=== PATIENT | male | born 1940 | race Caucasian/White ===

== ENCOUNTER 2016-11-05 17:52 | Inpatient (IN) | payer MEDICARE, OTHER ==
[2016-11-05] MEDS ORDERED: OXYCODONE-ACETAMINOPHEN 5-325 MG TABLET PO ONE (19:32)
--- NOTE | 2016-11-05 19:34 | ER Document Report ---
ED Medical Screen (RME) - General Chief Complaint: Skin Problem Stated Complaint: ABDOMINAL PROBLEM Time Seen by Provider: 11/05/16 19:31 Mode of Arrival: Ambulatory Information source: Patient TRAVEL OUTSIDE OF THE [place] IN LAST 30 DAYS: No - HPI Patient complains to provider of: drainage from old surgical wound on the right upper quadrant Notes: 11/05/16 19:34 Patient is a 76-year-old male who presents to the emergency room complaining of drainage from a old surgical scar in the right upper quadrant that he first noticed yesterday, he reports increased pressure and pain, he has been attempting to press on the area to drain all the fluid but it continues to drain , he denies a fever, no nausea or vomiting - Related Data Allergies/Adverse Reactions: alpha lipoic acid [From [facility]] Allergy (Severe, Verified 10/26/15 16: 20) folic acid [From [facility]] Allergy (Severe, Verified 10/26/15 16:20) lutein [From [facility]] Allergy (Severe, Verified 10/26/15 16:20) multivitamin with minerals [From [facility]] Allergy (Severe, Verified 12/03 16:20) iron [Iron] Allergy (Intermediate, Verified 10/26/15 16:20) BLOOD THINNERS Allergy (Mild, Uncoded 10/26/15 16:20) blood thinners Allergy (Mild, Uncoded 10/26/15 16:20) DIABETIC MEDICATIONS Allergy (Mild, Uncoded 10/26/15 16:20) Past Medical History - Past Medical History Cardiac Medical History: Reports: Hx Atrial Fibrillation, Hx Congestive Heart Failure, Hx Coronary Artery Disease - CONTROLLED WITH MEDS , Hx Heart Attack - 1993/CATH Denies: Hx Hypertension Pulmonary Medical History: Reports: Hx Bronchitis Denies: Hx Asthma, Hx COPD, Hx Pneumonia Neurological Medical History: Denies: Hx Cerebrovascular Accident, Hx Seizures Endocrine Medical History: Reports: Hx Diabetes Mellitus Type 1, Hx Diabetes Mellitus Type 2 Renal/ Medical History: Denies: Hx Peritoneal Dialysis GI Medical History: Reports: Hx Gastroesophageal Reflux Disease Musculoskeltal Medical History: Reports Hx Arthritis Past Surgical History: Reports: Hx Appendectomy, Hx Cardiac Catheterization, Hx Cholecystectomy, Hx Herniorrhaphy. Denies: Hx Pacemaker - Immunizations Immunizations up to date: Yes Hx Diphtheria, Pertussis, Tetanus Vaccination: Yes Physical Exam - Vital signs Vitals: Temp Pulse Resp BP Pulse Ox 97.8 F 85 24 H 194/75 H 96 11/05/16 18:01 11/05/16 18:01 11/05/16 18:01 11/05/16 18:01 11/05/16 18:01 Course - Vital Signs Vital signs: Temp Pulse Resp BP Pulse Ox 97.8 F 85 24 H 194/75 H 96 11/05/16 18:01 11/05/16 18:01 11/05/16 18:01 11/05/16 18:01 11/05/16 18:01
[2016-11-05 20:01] LABS: ABSOLUTE BASOPHILS # (AUTO) 0.1 10^3/uL (0.0-0.2); ABSOLUTE EOSINOPHILS # (AUTO) 0.1 10^3/uL (0.0-0.6); ABSOLUTE LYMPHOCYTES (AUTO) 2.4 10^3/uL (0.5-4.7); ABSOLUTE MONOCYTES (AUTO) 1.1 10^3/uL (0.1-1.4); ABSOLUTE NEUT (AUTO) 6.7 10^3/uL (1.7-8.2); BASOPHILS % (AUTO) 0.7 % (0-2); EOSINOPHILS % (AUTO) 1.2 % (0-6); HEMATOCRIT 51.3 % (37.9-51.0); HEMOGLOBIN 16.5 g/dL (13.5-17.0); HGB HCT DIFFERENCE -1.8; LYMPHOCYTES % (AUTO) 23.4 % (13-45); MEAN CORPUSCULAR HEMOGLOBIN 29.2 pg (27.0-33.4); MEAN CORPUSCULAR HGB CONC 32.1 g/dL (32.0-36.0); MEAN CORPUSCULAR VOLUME 91 fl (80-97); MONOCYTES % (AUTO) 10.7 % (3-13); RED BLOOD COUNT 5.64 10^6/uL (4.35-5.55); RED CELL DISTRIBUTION WIDTH 14.1 % (11.5-14.0); WHITE BLOOD COUNT 10.4 10^3/uL (4.0-10.5)
[2016-11-05 20:14] LABS: ALANINE AMINOTRANSFERASE 26 U/L (21-72); ALBUMIN 4.2 g/dL (3.5-5.0); ALKALINE PHOSPHATASE 84 U/L (38-126); ANION GAP 11 (5-19); ASPARTATE AMINO TRANSFERASE 20 U/L (17-59); BILIRUBIN,DIRECT 0.4 mg/dL (0.0-0.4); BILIRUBIN,TOTAL 0.9 mg/dL (0.2-1.3); BLOOD UREA NITROGEN 16 mg/dL (7-20); CALCIUM 10.1 mg/dL (8.4-10.2); CARBON DIOXIDE 30 mmol/L (22-30); CHLORIDE 102 mmol/L (98-107); CREATININE RESULT 1.06 mg/dL (0.52-1.25); GLUCOSE 123 mg/dL (75-110); POTASSIUM 4.7 mmol/L (3.6-5.0); SODIUM 143.4 mmol/L (137-145); TOTAL PROTEIN 8.6 g/dL (6.3-8.2)
--- NOTE | 2016-11-05 20:40 | ER Document Report ---
ED Wound - General Chief Complaint: Skin Problem Stated Complaint: ABDOMINAL PROBLEM Time Seen by Provider: 11/05/16 19:31 Mode of Arrival: Ambulatory Notes: Patient is a 76-year-old male that comes emergency department for chief complaint of 2 days of an area and an old surgical scar near his right upper quadrant of the abdomen that has leakage, he states it became raised, red, and then burst open and drained. He states the area significantly better now that has drained and is actually very small now. He states he has dealt with this intermittently for a long time now. He is diabetic, he states his glucose has been controlled, he denies fever chills, nausea/vomiting, or any other concerns other than the tender draining area. He lives by himself. Daughter at bedside. TRAVEL OUTSIDE OF THE [place] IN LAST 30 DAYS: No - Related Data Allergies/Adverse Reactions: alpha lipoic acid [From [facility]] Allergy (Severe, Verified 10/26/15 16: 20) folic acid [From [facility]] Allergy (Severe, Verified 10/26/15 16:20) lutein [From [facility]] Allergy (Severe, Verified 10/26/15 16:20) multivitamin with minerals [From [facility]] Allergy (Severe, Verified 12/03 16:20) iron [Iron] Allergy (Intermediate, Verified 10/26/15 16:20) BLOOD THINNERS Allergy (Mild, Uncoded 10/26/15 16:20) blood thinners Allergy (Mild, Uncoded 10/26/15 16:20) DIABETIC MEDICATIONS Allergy (Mild, Uncoded 10/26/15 16:20) Past Medical History - General Information source: Patient - Social History Smoking Status: Never Smoker Frequency of alcohol use: None Drug Abuse: None Lives with: Family Family History: Reviewed & Not Pertinent - Past Medical History Cardiac Medical History: Reports: Hx Atrial Fibrillation, Hx Congestive Heart Failure, Hx Coronary Artery Disease - CONTROLLED WITH MEDS , Hx Heart Attack - 1993/CATH Denies: Hx Hypertension Pulmonary Medical History: Reports: Hx Bronchitis Denies: Hx Asthma, Hx COPD, Hx Pneumonia Neurological Medical History: Denies: Hx Cerebrovascular Accident, Hx Seizures Endocrine Medical History: Reports: Hx Diabetes Mellitus Type 2 Renal/ Medical History: Denies: Hx Peritoneal Dialysis GI Medical History: Reports: Hx Gastroesophageal Reflux Disease Musculoskeltal Medical History: Reports Hx Arthritis Past Surgical History: Reports: Hx Appendectomy, Hx Cardiac Catheterization, Hx Cholecystectomy, Hx Herniorrhaphy. Denies: Hx Pacemaker - Immunizations Immunizations up to date: Yes Hx Diphtheria, Pertussis, Tetanus Vaccination: Yes Review of Systems - Review of Systems Constitutional: No symptoms reported EENT: No symptoms reported Cardiovascular: No symptoms reported Respiratory: No symptoms reported Gastrointestinal: No symptoms reported Genitourinary: No symptoms reported Male Genitourinary: No symptoms reported Musculoskeletal: No symptoms reported Skin: See HPI Hematologic/Lymphatic: No symptoms reported Neurological/Psychological: No symptoms reported Physical Exam - Vital signs Vitals: Temp Pulse Resp BP Pulse Ox 97.8 F 85 24 H 194/75 H 96 11/05/16 18:01 11/05/16 18:01 11/05/16 18:01 11/05/16 18:01 11/05/16 18:01 Interpretation: Normal - General General appearance: Appears well, Alert In distress: None - patient obese but well appearing - HEENT Head: Normocephalic, Atraumatic Eyes: Normal Conjunctiva: Normal Extraocular movements intact: Yes Eyelashes: Normal Pupils: PERRL Nasal: Normal Mouth/Lips: Normal Mucous membranes: Normal Pharynx: Normal Neck: Normal - Respiratory Respiratory status: No respiratory distress Chest status: Nontender Breath sounds: Normal. No: Decreased air movement, Wheezing Chest palpation: Normal - Cardiovascular Rhythm: Regular. No: Tachycardia Heart sounds: Normal auscultation, S1 appreciated, S2 appreciated Murmur: No - Abdominal Inspection: Other - There is an open draining area with very minimal surrounding erythema with some induration over the right upper quadrant, the area is within a long old surgical cholecystectomy scar, there are multiple scars of the patient's abdomen including a long midline scar. No guarding, no rebound tenderness, unremarkable exam otherwise. - Back Back: Normal, Nontender. No: Tender - Extremities General upper extremity: Normal inspection, Nontender, Normal color, Normal ROM , Normal temperature General lower extremity: Normal inspection, Nontender, Normal color, Normal ROM , Normal temperature, Normal weight bearing. No: Skyler's sign - Neurological Neuro grossly intact: Yes Cognition: Normal Orientation: AAOx4 [place] Coma Scale Eye Opening: Spontaneous [place] Coma Scale Verbal: Oriented [place] Coma Scale Motor: Obeys Commands [place] Coma Scale Total: 15 Speech: Normal Motor strength normal: LUE, RUE, LLE, RLE Sensory: Normal - Psychological Associated symptoms: Normal affect, Normal mood - Skin Skin Temperature: Warm Skin Moisture: Dry Skin Color: Normal Skin irregularity: other - Erythematous and wet areas underneath patient's abdominal pannus Course - Re-evaluation Re-evalutation: Examination shows a draining area in the right upper quadrant surgical scar, no fever, CBC and chemistry are generally unremarkable. Concern because on ultrasound at bedside and on formal ultrasound abscess is noted to be very large, extending several centimeters down into the abdomen. Discussed with Dr. Loyola, recommends surgical consultation. Discussed with Dr. Logan, surgeon paper production engineer, he recommends that patient be admitted to the hospital for surgical treatment of the abdominal wall abscess. Patient was already given a dose of vancomycin and pain medication, discussed with family, patient, they state understanding and agreement. - Vital Signs Vital signs: Temp Pulse Resp BP Pulse Ox 97.8 F 81 18 157/97 H 100 11/06/16 01:09 11/06/16 01:09 11/06/16 01:09 11/06/16 01:09 11/06/16 01:09 - Laboratory Result Diagrams: 11/05/16 19:45 11/05/16 19:45 Laboratory results interpreted by me: 11/05/16 11/05/16 19:45 19:45 RBC 5.64 H Hct 51.3 H RDW 14.1 H Glucose 123 H Total Protein 8.6 H Discharge - Discharge Clinical Impression: Abdominal wall abscess Disposition: ADMITTED INPATIENT Admitting Provider: Surgicalist Unit Admitted: Surgical Floor
--- NOTE | 2016-11-05 21:52 | RADIOLOGY REPORT (SQ) ---
EXAM DESCRIPTION: U/S ABDOMEN LIMITED W/O DOP COMPLETED DATE/TIME: 11/05/2016 9:36 pm REASON FOR STUDY: pain, fluid leakage COMPARISON: CT abdomen and pelvis 03/28/2012 Bilateral renal ultrasound 01/17/2010 TECHNIQUE: Dynamic and static grayscale images acquired of the abdomen and recorded on PACS. Additio nal selected color Doppler and spectral images recorded. LIMITATIONS: Body habitus, upper abdominal bowel gas FINDINGS: In the right upper quadrant anterior abdominal wall along the incision, there is a fluid c ollection superficial to the abdominal wall musculature, measuring about 4 x 3 x 3 cm in size. There is a tract to the skin surface. Findings are worrisome for an incisional abscess. PANCREAS: Not visualized LIVER: Limited visualization. No gross hepatomegaly LIVER VASCULATURE: Normal directional flow of the main portal vein and hepatic veins. GALLBLADDER: Surgically absent ULTRASOUND-DETECTED MENDEZ'S SIGN: Not apple ago INTRAHEPATIC DUCTS AND COMMON DUCT: Not well seen INFERIOR VENA CAVA: Not well seen AORTA: Not were RIGHT KIDNEY: Normal size. Normal echogenicity. No solid or suspicious masses. No hydronephrosis. No calcifications. PERITONEAL AND RIGHT PLEURAL SPACE: No ascites or effusions. OTHER: No other significant findings. IMPRESSION: Probable incisional abscess along the right upper quadrant abdominal wall, 4 x 3 x 3 cm size Post cholecystectomy Limited study due to large body habitus TECHNICAL DOCUMENTATION: JOB ID: [id number] All Rights Reserved
[2016-11-05] MEDS ORDERED: LIDOCAINE 1%/EPINEPHRINE INJ 20 ML VIAL INJ ONE (22:15)
[2016-11-05] MEDS ORDERED: VANCOMYCIN HCL INJ 1000 MG VIAL IV ONE (22:19)
[2016-11-05] MEDS ORDERED: CLOTRIMAZOLE 1% TOPICAL SOLN 10 ML TP ONE (22:26)
[2016-11-06] MEDS ORDERED: GLUCAGON,HUMAN RECOMB 1 MG INJ SUBCUT PRN (01:23)
[2016-11-06] MEDS ORDERED: DEXTROSE 40% GEL 15 GM TUBE PO PRN ×2 (01:23)
[2016-11-06] MEDS ORDERED: DEXTROSE 50%-WATER 25 GM/50 ML DISP.SYRIN IV PRN ×2 (01:23)
[2016-11-06] MEDS ORDERED: MORPHINE SULFATE 10 MG/ML INJ IV PRN (02:01)
[2016-11-06] MEDS ORDERED: OXYCODONE-ACETAMINOPHEN 5-325 MG TABLET PO PRN (02:01)
[2016-11-06] MEDS: NORMAL SALINE 1000 ML 1,000 ML IV PRN ×2 (02:45→20:21)
--- NOTE | 2016-11-06 09:09 | HISTORY AND PHYSICAL E ---
History and Physical NAME: KSENIA OSHEA : 1940 AGE: 76Y ADMITTED: 11/05/2016 ROOM: 419 CHIEF COMPLAINT: Pains in the right upper quadrant and drainage. HISTORY OF PRESENT ILLNESS: This is a 76-year-old male who underwent open cholecystectomy with incidental appendectomy about 20 years ago. Since then he would have collection in the right upper quadrant right at the incision and would drain brownish material. He had this at least twice in past. At this time, he noted pain and drainage along the right upper quadrant for the past 2 days. He claims the drainage is brownish in color. He had an ultrasound of this area which showed at least a 4 cm collection. PAST MEDICAL HISTORY: 1. History of open cholecystectomy and incidental appendectomy. 2. Left inguinal hernia repair in 1948. 3. He had a [place] in 1993. 4. Colon resection with end sigmoid colostomy for ruptured diverticulitis in 2011. He did have a trach during that time and the trach was closed after 6 months. SOCIAL HISTORY: He used to smoke until 1989. Denies drug use. Drinks beer occasionally. ALLERGIES: BLOOD THINNERS AND DIABETIC MEDICATIONS. He is a diabetic but not taking any medications at this time. MEDICATIONS: 1. Metoprolol for hypertension and history of [place]. 2. Aspirin. REVIEW OF SYSTEMS: Denies any shortness of breath, chest pain, or cough. No difficulty swallowing. GI: Right upper quadrant pain. Colostomy is functioning well. No dysuria. The rest of the systems unremarkable. PHYSICAL EXAMINATION: GENERAL: Well developed, well nourished, 76-year-old male alert and oriented. Complaining of mild pains in the right upper quadrant. HEENT: Neck is supple. No thyromegaly. LUNGS: Clear. HEART: Regular sinus rhythm. ABDOMEN: Soft with palpable lump along the right subcostal cholecystectomy incision site. There is a hole that is relatively dry at this time. Colostomy is functioning well. EXTREMITIES: No edema. IMPRESSION: Collection of the right upper quadrant at the cholecystectomy incision site that is recurrent. Rule out abscess. Rule out fistula. PLAN: 1. Keep n.p.o. and on IV antibiotics. 2. Possible drainage of the collection today by Dr. Gallo. DICTATING PHYSICIAN: MARJAN ONEILL M.D. [id number] PHY#: [id number] ID: [id number] JOB#: [id number] ACCT: [id number] cc:MARJAN ONEILL M.D. >
--- NOTE | 2016-11-06 10:21 | EKG REPORT ---
SEVERITY:- ABNORMAL ECG - ATRIAL FIBRILLATION, V-RATE 44-74 BORDERLINE INFERIOR Q WAVES BORDERLINE T ABNORMALITIES, DIFFUSE LEADS : Confirmed by: Yanira Matthew MD 06-Nov-2016 10:20:59
[2016-11-06] MEDS: VANCOMYCIN HCL 1,500 MG in DEXTROSE 5%-WATER 250 ML IV SCH ×2 (10:45→22:54)
--- NOTE | 2016-11-06 13:54 | RADIOLOGY REPORT (SQ) ---
EXAM DESCRIPTION: CT ABD/PELVIS WITH IV ORAL COMPLETED DATE/TIME: 11/06/2016 1:29 pm REASON FOR STUDY: r/o biliary cutaneous fistula COMPARISON: Ultrasound dated 11/05/2016, CT abdomen and pelvis dated 03/28/2012 TECHNIQUE: CT scan of the abdomen and pelvis performed using helical scanning technique with dynamic intravenous contrast injection. No oral contrast. Images reviewed with lung, soft tissue, and bone windows. Reconstructed coronal and sagittal MPR images reviewed. Delayed images for evaluation of the urinary system also acquired. All images stored on PACS. All CT scanners at this facility use dose modulation, iterative reconstruction, and/or weight based d osing when appropriate to reduce radiation dose to as low as reasonably achievable (ALARA). [facility]: Dose Right [facility]: CareDose [facility]: Dose Right [facility]: Teradose 4D [facility]: TRUSTe CONTRAST TYPE AND DOSE: contrast/concentration: Isovue 370.00 mg/ml; Total Contrast Delivered: 100.0 ml; Total Saline Delivered: 28.1 ml RENAL FUNCTION: BUN 16, creatinine 1.06 RADIATION DOSE: Up-to-date CT equipment and radiation dose reduction techniques were employed. CTDIv ol: 25.5 - 30.3 mGy. DLP: 3052 mGy-cm.. LIMITATIONS: None. FINDINGS: LOWER CHEST: There is bilateral basilar pleural thickening. There is a small left effusio n and bibasilar atelectasis. LIVER: Normal size. No masses or dilated ducts. SPLEEN: Normal size. No focal lesions. PANCREAS: No masses. No significant calcifications. No adjacent inflammation or peripancreatic fluid collections. Pancreatic duct not dilated. GALLBLADDER: Surgically absent. ADRENAL GLANDS: No significant masses or asymmetry. RIGHT KIDNEY AND URETER: No solid masses. No significant calcifications. No hydronephrosis or hyd roureter. LEFT KIDNEY AND URETER: No solid masses. There are stable stones in the left renal pelvis. Largest measures 1.3 cm in diameter. No hydronephrosis or hydroureter. AORTA AND VESSELS: The aorta demonstrates calcified plaque. No aneurysmal dilatation. RETROPERITONEUM: No retroperitoneal adenopathy, hemorrhage or masses. BOWEL AND PERITONEAL CAVITY: There are postsurgical changes with an ostomy site in the left lower nguyen drant. APPENDIX: Not visualized. PELVIS: No mass or free fluid. Normal bladder. ABDOMINAL WALL: There is focal soft tissue attenuation in the right lateral abdominal wall this measu res 4.5 cm in greatest diameter. There is a fistulous track with the skin. Hounsfield units are hig h most likely due to artifact. BONES: No significant or acute findings. OTHER: No other significant finding. IMPRESSION: Small subcutaneous collection is identified. 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 La rgest diameter is 4.5 cm. This may represent postoperative seroma or hematoma. There is no subcutan eous gas. There are no acute intraabdominal findings. There are stable nonobstructing left renal ca lculi. TECHNICAL DOCUMENTATION: JOB ID: [id number] Quality ID # [id number]: Final reports with documentation of one or more dose reduction techniques (e.g., Au tomated exposure control, adjustment of the mA and/or kV according to patient size, use of iterative reconstruction technique) 2010 [employer]- All Rights Reserved
[2016-11-06] MEDS: MORPHINE SULFATE 10 MG/ML INJ IV PRN (14:23)
[2016-11-06] MEDS ORDERED: LIDOCAINE 1% INJ-PF (10 MG/ML) 30 ML SDV ONE (16:12)
--- NOTE | 2016-11-06 16:13 | PROGRESS NOTE E ---
Progress Note NAME: KSENIA OSHEA : 1940 AGE: 76Y DATE: 11/06/2016 ROOM: 419 SUBSEQUENT HOSPITAL NOTE BY GENERAL SURGERY SUBJECTIVE: The patient is still having drainage from his right subcostal incision. This incision according to patient's verbal history but not confirmed through any medical record review, has been intermittent following an open cholecystectomy 20 years ago. Occasionally the drainage is bilious. The patient denies history of trauma or any surgery for the infectious site. OBJECTIVE: GENERAL: The patient is examined twice today--once at 8 o'clock in the morning and once at 3:40 in the afternoon. He is in no acute distress. ABDOMEN: Soft with midline operative scar, left lower quadrant colostomy. The right subcostal scar is well healed but in the center is an actively draining purulent and bile-stained area. The remainder of the examination is nonfocal. LABORATORY PROFILE: From yesterday was unremarkable. There is no white count. We did obtain a CT scan of the abdomen and pelvis today which was a well performed study. There is an inflammatory subcutaneous and deep tract going towards the tip of the right inferior pole of the liver without any intraabdominal fluid collection. This does not communicate with the issac hepatis. There is no other fluid in the abdominal compartment. The interpretation was of a fistulous tract. There is no subcutaneous gas. IMPRESSION: CHRONIC RECURRENT DRAINING SUBCUTANEOUS INFLAMMATORY MASS THAT APPEARS TO BE COMMUNICATING WITH THE INFEROLATERAL ASPECT OF THE RIGHT LOBE OF THE LIVER WITHOUT ANY EVIDENCE OF INTRAABDOMINAL SEPSIS. DISCUSSION: I shared the findings with the patient and the patient's daughters at bedside today. I gave him several options which included nonoperative management, possible percutaneous drain, possible bedside debridement and operating room debridement under LMAC to clean this tract down and possibly leave a drain in. He would like to have the tract cleaned out and I think this is a reasonable option. I told him we would stick to a local regional debridement and not perform exploratory surgery, and he is in agreement to proceed. DICTATING PHYSICIAN: EUN CARCAMO M.D. [id number] PHY#: [id number] ID: [id number] JOB#: [id number] ACCT: [id number] cc: >
[2016-11-06] MEDS ORDERED: KETAMINE HCL INJ 500 MG/10 ML VIAL ONE (16:34)
[2016-11-06] MEDS ORDERED: DEXMEDETOMIDINE INJ 80 MCG/20 ML VIAL IV ONE (16:34)
[2016-11-06] MEDS ORDERED: MIDAZOLAM 2 MG/2 ML INJ ONE (16:34)
[2016-11-06] MEDS ORDERED: FENTANYL CITRATE INJ/PF 100 MCG/2 ML AMPUL ONE (16:34)
[2016-11-06] MEDS ORDERED: PROPOFOL INJ 200 MG/20 ML VIAL IV ONE (16:34)
[2016-11-06] MEDS ORDERED: DIPHENHYDRAMINE HCL 50 MG/ML VIAL IV PRN (17:36)
[2016-11-06] MEDS ORDERED: FENTANYL CITRATE INJ/PF 100 MCG/2 ML AMPUL IV PRN ×2 (17:36)
--- NOTE | 2016-11-06 17:41 | Operative Report ---
Operative Report PREOPERATIVE DIAGNOSIS: Abdominal wall abscess POSTOPERATIVE DIAGNOSIS: Abdominal wall abscess; no evidence of intraperitoneal communication OPERATION: Abdominal wall abscess debridement excisional, with night, #10, and vigorous manual debridement and intraoperative ultrasonography SURGEON: EUN CARCAMO ANESTHESIA: LMAC TISSUE REMOVED OR ALTERED: Nonviable skin and subcutaneous tissue, abscess COMPLICATIONS: None ESTIMATED BLOOD LOSS: 10 cc INTRAOPERATIVE FINDINGS: See below PROCEDURE: The patient was taken to the operating room also [facility] where LMAC anesthesia was induced. Right upper quadrant abdominal wall was exposed, prepped draped sterile fashion. Surgical plan and surgical timeout were conducted. Skin was anesthetized with 1% lidocaine at the site of the abscess drainage approximately mid to two thirds lateral to the starting point of the chronic subcostal operative scar. I ellipsed a portion of skin subcu and subcutaneous tissue with a #10 blade. We then got into the necrotic fat pocket was extended inferiorly laterally and somewhat superiorly. All loculations were broken up vigorously with finger dissection and suction. Of note several strands of black suture were removed floating in the debris. There was one single edged retained portion of suture coming out of the fascia and this was pulled on but did not relieve so was trimmed at the fascial level. Of note there was no succus, bile, or penetration through the fascia into the peritoneal cavity. The infection appeared to be contained predominantly to the subcutaneous space. This was somewhat of a departure from what was visualized on the CT scan earlier today however I felt like the appropriate level of damage control for the localized infection have been performed. The wound was irrigated out again. Wound packed with gauze packing. Postop procedure well.
--- NOTE | 2016-11-06 17:55 | EKG REPORT ---
SEVERITY:- ABNORMAL ECG - ATRIAL FIBRILLATION, V-RATE 63-77 BORDERLINE INFERIOR Q WAVES CONSIDER ANTEROSEPTAL INFARCT BORDERLINE T ABNORMALITIES, DIFFUSE LEADS : Confirmed by: Yanira Matthew MD 06-Nov-2016 17:55:23
[2016-11-06] MEDS ORDERED: NITROGLYCERIN 0.4 MG/TAB 25 TAB/BOTTLE SL PRN (20:09)
[2016-11-06] MEDS ORDERED: VANCOMYCIN HCL 1,000 MG in DEXTROSE 5%-WATER 250 ML IV SCH (22:00)
[2016-11-06] MEDS: METOPROLOL TARTRATE 25 MG TABLET PO SCH (22:54)
[2016-11-07] MEDS ORDERED: IRON PO SCH (10:00)
[2016-11-07] MEDS ORDERED: MULTIVITS CA MIN PO SCH (10:00)
[2016-11-07] MEDS ORDERED: LYCOP PO SCH (10:00)
[2016-11-07] MEDS ORDERED: [UNRECOGNIZED DRUG - OTHER] PO SCH (10:00)
[2016-11-07] MEDS: MULTIVITAMIN TABLET PO SCH (10:16)
[2016-11-07] MEDS: METOPROLOL TARTRATE 25 MG TABLET PO SCH ×2 (10:16→21:52)
[2016-11-07] MEDS: ASPIRIN 81 MG TABLET, ENT COATED PO SCH (10:17)
[2016-11-07] MEDS: LORATADINE 10 MG TABLET PO SCH (10:17)
[2016-11-07] MEDS: FUROSEMIDE 20 MG TABLET PO SCH (10:17)
[2016-11-07] MEDS: ASCORBIC ACID 500 MG TABLET PO SCH (10:17)
[2016-11-07] MEDS: LATANOPROST 0.005% OPH SOLN 2.5 ML OU SCH (10:18)
[2016-11-07] MEDS: IPRATROPIUM/ALBUTEROL 120 PUFF/4 GM MDI IH SCH (10:20)
[2016-11-07] MEDS: VANCOMYCIN HCL 1,500 MG in DEXTROSE 5%-WATER 250 ML IV SCH ×2 (10:26→22:55)
--- NOTE | 2016-11-07 11:08 | PROGRESS NOTE E ---
Progress Note NAME: KSENIA OSHEA : 1940 AGE: 76Y DATE: 11/07/2016 ROOM: 436 SUBJECTIVE: This is the first postop day for evacuation and debridement of the right upper quadrant for this patient. He had the surgery done yesterday by Dr. Gallo. This morning there is no fever. Temperature 97.7. Patient denies any significant pain in the right upper quadrant. PLAN: Continued IV antibiotics. I will remove the packing in a.m. and possibly repack it gently. DICTATING PHYSICIAN: MARJAN ONEILL M.D. [id number] PHY#: [id number] ID: [id number] JOB#: [id number] ACCT: [id number] cc: >
[2016-11-07] MEDS: NORMAL SALINE 1000 ML 1,000 ML IV PRN (21:50)
[2016-11-07] MEDS ORDERED: SIMVASTATIN 10 MG TABLET PO SCH (22:00)
[2016-11-08] MEDS: MORPHINE SULFATE 10 MG/ML INJ IV PRN (09:31)
[2016-11-08] MEDS: FUROSEMIDE 20 MG TABLET PO SCH (09:49)
[2016-11-08] MEDS: ASPIRIN 81 MG TABLET, ENT COATED PO SCH (09:51)
[2016-11-08] MEDS: METOPROLOL TARTRATE 25 MG TABLET PO SCH (09:51)
[2016-11-08] MEDS: MULTIVITAMIN TABLET PO SCH (09:51)
[2016-11-08] MEDS: LATANOPROST 0.005% OPH SOLN 2.5 ML OU SCH (09:52)
[2016-11-08] MEDS: ASCORBIC ACID 500 MG TABLET PO SCH (09:52)
[2016-11-08] MEDS: IPRATROPIUM/ALBUTEROL 120 PUFF/4 GM MDI IH SCH (09:52)
[2016-11-08] MEDS: LORATADINE 10 MG TABLET PO SCH (09:52)
[2016-11-08] MEDS: VANCOMYCIN HCL 1,500 MG in DEXTROSE 5%-WATER 250 ML IV SCH (09:55)
--- NOTE | 2016-11-08 09:59 | DISCHARGE SUMMARY E ---
Discharge Summary NAME: KSENIA OSHEA : 1940 AGE: 76Y ADMITTED: 11/06/2016 DISCHARGED: PROCEDURE DONE: Incision and drainage and debridement of right upper abdominal cholecystectomy incision site by Dr. Gallo. SUMMARY: This is a 76-year-old male who had an open cholecystectomy done about 20 years ago. Since then he has had multiple abscesses on the right side of the abdomen at the incision site. Third episodes was this time when he complained of pain along the right upper quadrant and an ultrasound showed a mass or collection at the right upper quadrant, appears to be the area of the cholecystectomy site roughly about 4 cm in diameter. An incision and drainage was then performed by Dr. Gallo on 11/06/2016 with removal of sutures which may be the reason why he is getting recurrences. The area was also debrided and packed. Today the packing was removed and the wound looks good with no drainage. It was gently repacked with 1/4 inch Iodoform gauze. He will be discharged on p.o. Augmentin. Culture from the wound did not grow anything so far. He will just need p.o. antibiotics for another 5 to 7 days. Arrangements will be made for him to come to [facility] for followup in the next two days. DICTATING PHYSICIAN: MARJAN ONEILL M.D. [id number] PHY#: [id number] ID: [id number] JOB#: [id number] ACCT: [id number] cc:Vicky LARA PA >
[2016-11-08 11:38] VITALS: BP 159/84
[2016-11-08 11:43] LABS: CREATININE RESULT 0.99 mg/dL (0.52-1.25)
--- NOTE | 2016-11-09 10:01 | OPERATIVE REPORT E ---
Operative Report NAME: KSENIA OSHEA : 1940 AGE: 76Y DATE OF SURGERY: 11/06/2016 ROOM: 436 ADDENDUM: The wound size of the cavity was approximately 4 x 4 x 12 cm. DICTATING PHYSICIAN: EUN CARCAMO M.D. [id number] PHY#: [id number] ID: [id number] JOB#: [id number] ACCT: [id number] cc:EUN CARCAMO M.D. >
== END 2016-11-08 14:15 | disposition home or self-care (01) | DRG 572 ==
LOC: ER 17:52 → EH 22:45 → UNDOADMIN 22:45 → EH 11-06 01:08 → 4W 11-06 01:08 → UNDOADMIN 11-06 01:22 → 4W 11-06 06:58 → 4S 11-07 06:33
PROVIDERS: ADMIT Surgery; ATTEND Surgery
PROC: 0JB80ZZ Excision of Abdomen Subcutaneous Tissue and Fascia, Open Approach (ICD-10-PCS; principal; 2016-11-06 16:00)
DX: L02.211 Cutaneous abscess of abdominal wall (principal); I25.10 Atherosclerotic heart disease of native coronary artery without angina pectoris; I48.91 Unspecified atrial fibrillation; E11.9 Type 2 diabetes mellitus without complications; K21.9 Gastro-esophageal reflux disease without esophagitis; M19.90 Unspecified osteoarthritis, unspecified site; I25.2 Old myocardial infarction; Z90.49 Acquired absence of other specified parts of digestive tract; Z79.82 Long term (current) use of aspirin; Z79.899 Other long term (current) drug therapy; Z93.3 Colostomy status; Z87.891 Personal history of nicotine dependence; Z88.8 Allergy status to other drugs, medicaments and biological substances
CPT/HCPCS: 36415; 700; 74177; 76705; 80053; 80202; 82565; 82962; 85025; 87040; 87070; 87075; 87077; 87186; 87205; 93005; 93010; 99285; A6266; J2250; J2270; J2704; J3010; J3370; J3490; J7030; J7060

== ENCOUNTER → 2016-12-15 | Outpatient (CLI) | payer MEDICARE, OTHER ==
--- NOTE | 2016-12-15 15:51 | RADIOLOGY REPORT (SQ) ---
EXAM DESCRIPTION: CT ABDOMEN WITH IV ORAL CONT COMPLETED DATE/TIME: 12/15/2016 2:27 pm REASON FOR STUDY: ABSCESS OF ABDOMINAL WALL L02.211 CUTANEOUS ABSCESS OF ABDOMINAL WALL COMPARISON: 11/06/2016 TECHNIQUE: CT scan of the abdomen performed with intravenous and with oral contrast using helical sc anning technique with dynamic intravenous contrast injection. Images reviewed with lung, soft tissue, and bone windows. Reconstructed coronal and sagittal MPR images reviewed. Delayed images for evaluat ion of the urinary system also acquired and evaluated. All images stored on PACS. All CT scanners at this facility use dose modulation, iterative reconstruc tion, and/or weight based dosing when appropriate to reduce radiation dose to as low as reasonably ac hievable (ALARA). [facility]: Dose Right [facility]: CareDose [facility]: Dose Right [facility]: Teradose 4D [facility]: Buzz360 CONTRAST TYPE AND DOSE: contrast/concentration: Isovue 370.00 mg/ml; Total Contrast Delivered: 100.0 ml; Total Saline Delivered: 40.5 ml RENAL FUNCTION: Creatinine 1.2 RADIATION DOSE: Up-to-date CT equipment and radiation dose reduction techniques were employed. CTDIv ol: 25.7 - 29.7 mGy. DLP: 2189 mGy-cm. . LIMITATIONS: None. FINDINGS: LOWER CHEST: Chronic interstitial changes are present in both lower lobes. LIVER: Normal size. No masses. No dilated ducts. SPLEEN: Normal size. No focal lesions. PANCREAS: No masses. No significant calcifications. No adjacent inflammation or peripancreatic fluid collections. Pancreatic duct not dilated. GALLBLADDER: Surgically absent. ADRENAL GLANDS: No significant masses or asymmetry. RIGHT KIDNEY AND URETER: No solid masses. No significant calcifications. No hydronephrosis or hyd roureter. LEFT KIDNEY AND URETER: No solid masses. Prominent calcifications are present in the collecting sys tem. No hydronephrosis or hydroureter. AORTA AND VESSELS: No aneurysm. Extensive atherosclerosis including atherosclerotic plaques at the o rigin of the celiac, SMA, and renal arteries. RETROPERITONEUM: No retroperitoneal adenopathy, hemorrhage or masses. BOWEL AND PERITONEAL CAVITY: No masses or inflammatory changes. No peritoneal masses. There is stran ding in the fat adjacent to the anterior aspect of the right lobe of the liver on images 36 through 5 3 series 2. APPENDIX: Surgically absent. ABDOMINAL WALL: The dense subcutaneous collection seen on the prior study laterally on the right this not included [id number] on this study. BONES: No significant or acute findings. OTHER: No other significant finding. IMPRESSION: 1. Chronic interstitial changes the lower lobes. 2. Extensive atherosclerosis. 3. There is stranding in the fat anterior to the right lobe of the liver. Unfortunately, the subcut aneous area of increased attenuation discussed in the report from the study from November 06 is not inc luded in examination field of the current study. TECHNICAL DOCUMENTATION: JOB ID: [id number] Quality ID # [id number]: Final reports with documentation of one or more dose reduction techniques (e.g., Au tomated exposure control, adjustment of the mA and/or kV according to patient size, use of iterative reconstruction technique) 2010 [employer]- All Rights Reserved
== END ==
LOC: RAD 12:52
PROVIDERS: ATTEND Nurse Practitioner Family
DX: L02.211 Cutaneous abscess of abdominal wall (principal)
CPT/HCPCS: 74160; 82565

== ENCOUNTER 2019-03-29 04:03 | Emergency (ER) | payer MEDICARE, OTHER ==
[2019-03-29] MEDS ORDERED: CEFAZOLIN 1 GM/D5W RTU 1 GM/50 ML RTUPB IV ONE (04:46)
--- NOTE | 2019-03-29 04:57 | ER Document Report ---
ED Wound - General Chief Complaint: Puncture Wound to Foot Stated Complaint: LEFT FOOT PAIN Time Seen by Provider: 03/29/19 04:21 Primary Care Provider: RINA WILL NP, DIRECTOR CHEMISTRY [Primary Care Provider] - Follow up as needed Notes: Patient is a 78-year-old male with a history of type 2 diabetes that comes to the emergency department for chief complaint of stepping on a sharp piece of plastic on the floor of his house with his bare feet just prior to arrival. He states that the piece of plastic was lodged in his foot for almost an hour because he thought that he was just feeling pain from stepping on it, he realized after a while and pulled out the piece, it was a couple of inches long and hard plastic reportedly. He states his tetanus is up-to-date within 5 years. He denies any other complaints. He drove himself here from home. He is not on a blood thinner other than baby aspirin. TRAVEL OUTSIDE OF THE [place] IN LAST 30 DAYS: No - Related Data Allergies/Adverse Reactions: alpha lipoic acid [From [facility]] Allergy (Severe, Verified 10/26/15 16:20) folic acid [From [facility]] Allergy (Severe, Verified 10/26/15 16:20) lutein [From [facility]] Allergy (Severe, Verified 10/26/15 16:20) multivitamin with minerals [From [facility]] Allergy (Severe, Verified 10/26/15 16:20) iron [Iron] Allergy (Intermediate, Verified 10/26/15 16:20) BLOOD THINNERS Allergy (Mild, Uncoded 10/26/15 16:20) blood thinners Allergy (Mild, Uncoded 10/26/15 16:20) DIABETIC MEDICATIONS Allergy (Mild, Uncoded 10/26/15 16:20) Home Medications: Patient states he cannot take medications for his diabetes because he is allergic Past Medical History - General Information source: Patient - Social History Smoking Status: Never Smoker Drug Abuse: None Lives with: Alone Family History: Reviewed & Not Pertinent Patient has suicidal ideation: No Patient has homicidal ideation: No - Past Medical History Cardiac Medical History: Reports: Hx Atrial Fibrillation, Hx Congestive Heart Failure, Hx Coronary Artery Disease - CONTROLLED WITH MEDS , Hx Heart Attack - 1994/CATH Denies: Hx Hypertension Pulmonary Medical History: Reports: Hx Bronchitis Denies: Hx Asthma, Hx COPD, Hx Pneumonia Neurological Medical History: Denies: Hx Cerebrovascular Accident, Hx Seizures Endocrine Medical History: Reports: Hx Diabetes Mellitus Type 2 Renal/ Medical History: Denies: Hx Peritoneal Dialysis GI Medical History: Reports: Hx Gastroesophageal Reflux Disease Musculoskeletal Medical History: Reports Hx Arthritis Past Surgical History: Reports: Hx Appendectomy, Hx Cardiac Catheterization, Hx Cholecystectomy, Hx Herniorrhaphy. Denies: Hx Pacemaker - Immunizations Immunizations up to date: Yes Hx Diphtheria, Pertussis, Tetanus Vaccination: Yes Review of Systems - Review of Systems Constitutional: No symptoms reported EENT: No symptoms reported Cardiovascular: No symptoms reported Respiratory: No symptoms reported Gastrointestinal: No symptoms reported Genitourinary: No symptoms reported Male Genitourinary: No symptoms reported Musculoskeletal: See HPI Skin: See HPI Hematologic/Lymphatic: No symptoms reported Neurological/Psychological: No symptoms reported Physical Exam - Vital signs Vitals: Temp Pulse Resp BP Pulse Ox 98.0 F 68 26 H 156/85 H 100 03/29/19 04:10 03/29/19 04:10 03/29/19 04:10 03/29/19 04:10 03/29/19 04:10 - Notes Notes: GENERAL: Alert, interacts well. No acute distress. HEAD: Normocephalic, atraumatic. EYES: Pupils equal, round, and reactive to light. Extraocular movements intact. ENT: Oral mucosa moist, tongue midline. Oropharynx unremarkable. Airway patent. LUNGS: Clear to auscultation bilaterally, no wheezes, rales, or rhonchi. No respiratory distress. HEART: Regular rate and rhythm. No murmur ABDOMEN: Soft, non-tender. Non-distended. Colostomy bag in place. EXTREMITIES: There is a puncture wound in the mid plantar aspect of the left foot with a tiny bit of bleeding when the current dressing is removed. No heavy bleeding, no noted tenderness or swelling, unremarkable foot exam otherwise with normal capillary refill and sensation, normal range of motion of the toes and ankle. Extremities otherwise unremarkable. BACK: no cervical, thoracic, lumbar midline tenderness. No saddle anesthesia, normal distal neurovascular exam. NEUROLOGICAL: Alert and oriented x3. Normal speech. Cranial nerves II through XII grossly intact. PSYCH: Normal affect, normal mood. SKIN: Warm, dry, normal turgor. No rashes or lesions noted. Course - Re-evaluation Re-evalutation: Patient with a puncture wound to the bottom of the foot, there was a small amount of bleeding noted but no significant swelling, the area is mildly tender, the foot exam is otherwise unremarkable except for some bilateral lower extremity edema which is mild. Patient states she has been sleeping with in a chair with his feet down when he normally elevates them at night. He states she will start elevating them again. Patient given Ancef, tetanus is up-to-date, x-ray without concerning findings. Because he is a diabetic we will add Pseudomonas coverage with Cipro in addition to coverage with Keflex for staph and strep. Area was cleaned and dressed. Fortunately patient also has a fly rail operator appointment on Sunday which is only in several days. Strongly urged him to follow-up with this for recheck, discussed care, discussed return precautions at length. Patient states appreciation and agreement. - Vital Signs Vital signs: Temp Pulse Resp BP Pulse Ox 97.8 F 66 19 155/74 H 97 03/29/19 07:00 03/29/19 07:00 03/29/19 07:00 03/29/19 07:00 03/29/19 07:00 Discharge - Discharge Clinical Impression: Puncture wound of left foot Qualifiers: Encounter type: initial encounter Qualified Code(s): S91.332A - Puncture wound without foreign body, left foot, initial encounter Condition: Stable Disposition: HOME, SELF-CARE Additional Instructions: The x-ray does not show any concerning findings. The wound is concerning for developing infection, elevate your foot whenever possible, take the antibiotics as prescribed. Clean the area thoroughly with soap and water, apply clean dressing. Xeroform (yellow part) can be used for the next 2 days, afterwards use the topical antibiotic. Please follow-up closely with your fly rail operator for recheck. Return if you worsen in any way including developing pain, discolored discharge, developing or spreading redness, fever/chills, or any other concerning symptoms Prescriptions: Ciprofloxacin HCl [Cipro 500 mg Tablet] 500 mg PO BID 7 Days #14 tablet Cephalexin Monohydrate [Keflex 500 mg Capsule] 500 mg PO QID #28 capsule Referrals: RINA WILL DIRECTOR CHEMISTRY, DIRECTOR CHEMISTRY [Primary Care Provider] - Follow up as needed
--- NOTE | 2019-03-29 05:43 | RADIOLOGY REPORT (SQ) ---
EXAM DESCRIPTION: XR FOOT 3 OR MORE VIEWS COMPLETED DATE/TME: 03/29/2019 04:46 CLINICAL HISTORY: 78 years, Male, stepped on large sharp foreign body COMPARISON: None. FINDINGS: 3 views of the left foot. Osteopenia. Plantar calcaneal spur. Plantar soft tissue edema. No radiopaque foreign body. IMPRESSION: 1. No radiopaque foreign body. copyright 2010 [employer]- All Rights Reserved
[2019-03-29 07:02] VITALS: BP 155/74
== END 2019-03-29 07:00 | disposition home or self-care (01) ==
LOC: ER 04:03
DX: S91.332A Puncture wound without foreign body, left foot, initial encounter (principal); W22.09XA Striking against other stationary object, initial encounter; I48.91 Unspecified atrial fibrillation; I50.9 Heart failure, unspecified; I25.2 Old myocardial infarction
CPT/HCPCS: 73630; J0690; 96365; 99283

== ENCOUNTER 2020-02-14 17:00 | Emergency (ER) | payer MEDICARE, OTHER ==
--- NOTE | 2020-02-14 17:54 | ER Document Report ---
ED GI/ - General TRAVEL OUTSIDE OF THE [place] IN LAST 30 DAYS: No - General Chief Complaint: Constipation Stated Complaint: CONSTIPATION Time Seen by Provider: 02/14/20 17:42 Primary Care Provider: KSENIA UMAÑA PA-C [Primary Care Provider] - Follow up as needed Notes: This 79-year-old man presents to the emergency department with a complaint of no thinning out of his colostomy for the past 10 days. He states that he is constipated and is having some abdominal discomfort. States that he has had the colostomy since 2009. He states he had a perforated colon and surgery was performed at [facility] in [facility]. Denies cough, fever, shortness of breath. He states that he has not been able to sleep the past few nights because of discomfort. (JANICE SOMMERS) - Related Data Allergies/Adverse Reactions: alpha lipoic acid [From [facility]] Allergy (Severe, Verified 10/26/15 16:20) folic acid [From [facility]] Allergy (Severe, Verified 10/26/15 16:20) lutein [From [facility]] Allergy (Severe, Verified 10/26/15 16:20) multivitamin with minerals [From [facility]] Allergy (Severe, Verified 10/26/15 16:20) iron [Iron] Allergy (Intermediate, Verified 10/26/15 16:20) BLOOD THINNERS Allergy (Mild, Uncoded 10/26/15 16:20) blood thinners Allergy (Mild, Uncoded 10/26/15 16:20) DIABETIC MEDICATIONS Allergy (Mild, Uncoded 10/26/15 16:20) Past Medical History - Social History Smoking Status: Unknown if Ever Smoked Family History: Reviewed & Not Pertinent - Past Medical History Cardiac Medical History: Reports: Hx Atrial Fibrillation, Hx Congestive Heart Failure, Hx Coronary Artery Disease - CONTROLLED WITH MEDS , Hx Heart Attack - 1993/ Denies: Hx Hypertension Pulmonary Medical History: Reports: Hx Bronchitis Denies: Hx Asthma, Hx COPD, Hx Pneumonia Neurological Medical History: Denies: Hx Cerebrovascular Accident, Hx Seizures Endocrine Medical History: Reports: Hx Diabetes Mellitus Type 1, Hx Diabetes Mellitus Type 2 Renal/ Medical History: Denies: Hx Peritoneal Dialysis GI Medical History: Reports: Hx Gastroesophageal Reflux Disease Musculoskeletal Medical History: Reports Hx Arthritis Past Surgical History: Reports: Hx Appendectomy, Hx Cardiac Catheterization, Hx Cholecystectomy, Hx Herniorrhaphy. Denies: Hx Pacemaker - Immunizations Immunizations up to date: Yes Hx Diphtheria, Pertussis, Tetanus Vaccination: Yes Review of Systems - Review of Systems Notes: Constitutional: Negative for fever. HENT: Negative for sore throat. Eyes: Negative for visual changes. Cardiovascular: Negative for chest pain. Respiratory: Negative for shortness of breath. Gastrointestinal: + Constipation, + abdominal pain Genitourinary: Negative for dysuria. Musculoskeletal: Negative for back pain. Skin: Negative for rash. Neurological: Negative for headaches, weakness or numbness. 10 point ROS negative except as marked above and in HPI. (JANICE SOMMERS) Physical Exam - Vital signs Vitals: Temp Pulse BP Pulse Ox 97.4 F 78 126/93 H 97 02/14/20 17:08 02/14/20 17:08 02/14/20 17:08 02/14/20 17:08 - Notes Notes: PHYSICAL EXAMINATION: Physical Exam: General: Alert and responsive 79-year-old man in moderate distress secondary to abdominal discomfort HEENT: NC/AT, pupils equal round and reactive to light, MM moist,nares clear, oropharynx clear, airway patent Neck: supple, no adenopathy, no masses. Good range of motion Lungs: clear, no wheezing, no rales no rhonchi CVS: Regular rate and rhythm no murmur gallop or rub Abdomen: Abdomen mildly distended with firm to palpation, decreased bowel sounds, no guarding, no rebound, left lower quadrant colostomy, no drainage. Ext: No edema, clubbing or cyanosis. Neuro: Alert and responsive, able to answers questions appropriately follow directions. Skin: Intact no open lesions, no rash (JANICE SOMMERS) Course - Diagnostic Test Radiology reviewed: Image reviewed, Reports reviewed - Re-evaluation Re-evalutation: 02/14/20 18:52 KUB was performed of the abdomen, increased stool,, no free air and constipation/increased stool. I have contacted the surgicalist, Dr. Gallo, states that he will see the patient in the emergency department. Baseline labs and IV fluids are started. 02/14/20 19:20 Dr. Gallo saw the patient in the emergency department perform a digital on the last admission notes that colostomy is patent however, the patient is constipated he has suggested enema for the colostomy as well as oral medication for bowel movement. The patient is given magnesium citrate and an enema per colostomy site. (JANICE SOMMERS) 02/14/20 22:53 Patient has had positive results with enema via colostomy and mag citrate and is ready for discharge. (ADORE GIMENEZ IV) - Vital Signs Vital signs: Temp Pulse Resp BP Pulse Ox 97.4 F 78 126/93 H 97 02/14/20 17:08 02/14/20 17:08 02/14/20 17:08 02/14/20 17:08 Discharge - Discharge Clinical Impression: Therapeutic opioid induced constipation Condition: Stable Disposition: HOME, SELF-CARE Instructions: Constipation (OM) Additional Instructions: Return to the Emergency Department without delay if any worse. HOME CARE INSTRUCTIONS & INFORMATION: Thank you for choosing us for your medical needs. We hope you're satisfied with the care you received. After you leave, you must properly care for your problem and, at the same time, observe its progress. Any condition can change. Some illnesses can change rapidly over hours or days. If your condition worsens, return to the Emergency Department or see your physician promptly. ABOUT YOUR X-RAYS AND EKG'S: If you had an EKG or X-rays taken, they have been read by the Emergency Physician. The X-rays and EKG's will also be read by a Ra diologist or Investor Relations Manager within 24 hours. If discrepancies are noted, you will be notified by telephone. Please be certain the ED has a correct telephone number & address where you can be reached. Also, realize that some fractures or abnormalities do not show up on initial X-rays. If your symptoms continue, see your physician. ABOUT YOUR LABORATORY TEST: If you had laboratory tests, the results have been reviewed by the Emergency Physician. Some test results (for example cultures) may not be available for several days. You will be contacted if any test result shows you need additional treatment. Please be certain the ED has a correct telephone number and address where you can be reached. ABOUT YOUR MEDICATIONS: You will receive instructions on how to take your medicine on the prescription label you receive. Additional information may be provided by the Pharmacy. If you have questions afterwards, call the ED for clarification or further instructions. Some prescribed medications may cause drowsiness. Do not perform tasks such as driving a car or operating machinery without consulting your Pharmacist. If you feel you need a refill of pain medication, your condition will need re-evaluation. Please do not call for a refill of any medication. ABOUT YOUR SIGNATURE: Signature of this document acknowledges to followin. Understanding that you received emergency treatment and that you may be released before al medical problems are known or treated. Please be certain the ED has a correct phone number & address where you can be reached. 2. Acknowledgement that you will arrange for follow-up care as recommended. 3. Authorization for the Emergency Physician to provide information to your follow-up Physician in order to maximize your care. AT ANY TIME, IF YOUR SYMPTOMS CHANGE SIGNIFICANTLY OR WORSEN OR YOU DEVELOP NEW SYMPTOMS, RETURN TO THE EMERGENCY DEPARTMENT IMMEDIATELY FOR RE-EVALUATION. OUR GOAL IS TO PROVIDE EXCELLENT MEDICAL CARE! WE HOPE THAT WE HAVE MET YOUR EXPECTATIONS DURING YOUR EMERGENCY DEPARTMENT VISIT AND THAT YOU FEEL YOU HAVE RECEIVED EXCELLENT CARE! Referrals: KSENIA UMAÑA PA-C [Primary Care Provider] - Follow up as needed
--- NOTE | 2020-02-14 18:20 | RADIOLOGY REPORT (SQ) ---
EXAM DESCRIPTION: KUB/ABDOMEN (SINGLE VIEW) IMAGES COMPLETED DATE/TIME: 02/14/2020 6:09 pm REASON FOR STUDY: Constipation COMPARISON: 07/19/2010 NUMBER OF VIEWS: One view. TECHNIQUE: Supine radiographic image of the abdomen acquired. LIMITATIONS: None. FINDINGS: BOWEL GAS PATTERN: Non-obstructive bowel gas pattern. No dilated loops. CALCIFICATIONS: Scattered calcifications. SOFT TISSUES: No gross mass or suggestion of organomegaly. HARDWARE: None in the abdomen. BONES: No acute fracture. No worrisome bone lesions. OTHER: No other significant finding. IMPRESSION: NO RADIOGRAPHIC EVIDENCE FOR ACUTE ABDOMINAL DISEASE. TECHNICAL DOCUMENTATION: JOB ID: [id number] [place]-72 2010 [employer]- All Rights Reserved Reading location - IP/workstation name: [employer]
[2020-02-14] MEDS ORDERED: NORMAL SALINE 1000 ML 1,000 ML IV ONE (18:43)
[2020-02-14] MEDS ORDERED: NA PHOS,M-B/NA PHOS,DI-BA (ADULT) 133 ML ENEMA PR ONE (19:22)
[2020-02-14] MEDS ORDERED: MAGNESIUM CITRATE 296 ML BOTTLE PO ONE (19:22)
--- NOTE | 2020-02-14 19:41 | PDOC CONSULTATION ---
Consultation Consult Date: 02/14/20 Attending physician:: JANICE RICH Provider Consulted: EUN CARCAMO Consult reason:: No colostomy output History of Present Illness Admission Date/PCP: KSENIA UMAÑA PA-C History of Present Illness: KSENIA OSHEA JR is a 79 year old male Is brought to the emergency department via ground rescue complaining of abdominal pain, no colostomy output for 1 to 2 weeks. He was initially seen by the emergency department, found to have no output in his colostomy bag, and abdominal film consistent with constipation. Surgery was consulted. No other family members with the patient. He is a cantankerous, poor historian. He is 8 years status post exploratory laparotomy, sigmoid colectomy, colostomy, and approximately 25 years status post open cholecystectomy. He is not an extremis. No labs or IV fluids provided. Past Medical History Cardiac Medical History: Reports: Atrial Fibrillation, Congestive Heart Failure, Coronary Artery Disease - CONTROLLED WITH MEDS , Myocardial Infarction - 1993/CATH Denies: Hypertension Pulmonary Medical History: Reports: Bronchitis Denies: Asthma, Chronic Obstructive Pulmonary Disease (COPD), Pneumonia Neurological Medical History: Denies: Seizures Endocrine Medical History: Reports: Diabetes Mellitus Type 1, Diabetes Mellitus Type 2 GI Medical History: Reports: Gastroesophageal Reflux Disease Musculoskeltal Medical History: Reports: Arthritis Hematology: Reports: Anemia Past Surgical History Past Surgical History: Exploratory laparotomy, sigmoid colectomy, colostomy; ileal polyp resection Past Surgical History: Reports: Appendectomy, Cardiac Catheterization, Cholecystectomy, Herniorrhaphy Denies: Pacemaker Social History Information Source: Patient Smoking Status: Unknown if Ever Smoked Frequency of Alcohol Use: Occasional Hx Recreational Drug Use: No Drugs: None Hx Prescription Drug Abuse: No Family History Family History: None, Reviewed & Not Pertinent Parental Family History Reviewed: No Children Family History Reviewed: NA Sibling(s) Family History Reviewed.: NA Medication/Allergy Home Medications: Ascorbic Acid [Vitamin C 500 mg Tablet] 500 mg PO DAILY 07/03/13 Aspirin [Ecotrin] 81 mg PO DAILY 07/03/13 Furosemide [Lasix 40 mg Tablet] 20 mg PO DAILY 07/03/13 Metoprolol Tartrate [Lopressor 25 mg Tablet] 25 mg PO Q12 07/03/13 Nitroglycerin [Nitrostat 0.4 mg (1/150 Gr) Tabs 25/Bottle] 0.4 mg PO ASDIR PRN 07/03/13 Simvastatin 20 mg PO DAILY 07/03/13 Ipratropium/Albuterol Sulfate [Combivent Inhaler] 1 puff IH DAILY 10/25/15 Latanoprost 1 drop OU DAILY 10/25/15 Loratadine 10 mg PO DAILY 10/25/15 Multivit-Mins/Iron/Folic/Lycop [Centrum Men's Tablet] 1 each PO DAILY 10/25/15 Cephalexin Monohydrate [Keflex 500 mg Capsule] 500 mg PO QID #28 capsule 03/29/19 Ciprofloxacin HCl [Cipro 500 mg Tablet] 500 mg PO BID 7 Days #14 tablet 03/29/19 Allergies/Adverse Reactions: alpha lipoic acid [From [facility]] Allergy (Severe, Verified 10/26/15 16:20) folic acid [From [facility]] Allergy (Severe, Verified 10/26/15 16:20) lutein [From [facility]] Allergy (Severe, Verified 10/26/15 16:20) multivitamin with minerals [From [facility]] Allergy (Severe, Verified 10/26/15 16:20) iron [Iron] Allergy (Intermediate, Verified 10/26/15 16:20) BLOOD THINNERS Allergy (Mild, Uncoded 10/26/15 16:20) blood thinners Allergy (Mild, Uncoded 10/26/15 16:20) DIABETIC MEDICATIONS Allergy (Mild, Uncoded 10/26/15 16:20) Review of Systems ROS unobtainable: Due to mental status - Is cantankerous, does not answer questions, very ornery Physical Exam Vital Signs: Temp Pulse Resp BP Pulse Ox 97.4 F 78 126/93 H 97 02/14/20 17:08 02/14/20 17:08 02/14/20 17:08 02/14/20 17:08 Intake & Output 02/13/20 02/14/20 02/15/20 06:59 06:59 06:59 Weight 129.274 kg General appearance: PRESENT: other - Overweight pale white male with pillows supporting on the right side Mouth exam: PRESENT: other - Poor dentition Respiratory exam: PRESENT: other - Rhonchorous respirations Cardiovascular exam: PRESENT: irregular rhythm GI/Abdominal exam: PRESENT: other - Abdomen examined. Multiple scars consistent with previous surgery; ostomy appliance removed and ostomy visualized to be pink. Lubricated index finger inserted all the way to the web space of the exam iner's finger, no stool or mechanical block is detected Neurological exam: PRESENT: alert, awake, other - Not assessed due to patient's noncompliant participation in the examination Skin exam: PRESENT: other - Edematous, warm Results Impressions: KUB X-Ray 02/14/20 17:53 IMPRESSION: NO RADIOGRAPHIC EVIDENCE FOR ACUTE ABDOMINAL DISEASE. Assessment & Plan - Diagnosis (1) Constipation Is this a current diagnosis for this admission?: Yes Plan: Impression: A limited clinical history, physical exam, radiographic image all consistent with constipation likely due to narcotic bowel, bedridden condition; no suggestion of surgical abdomen. Recommendations: 1. No indication for surgical treatment 2. Suggest cathartics either orally as an PEG solution, GoLYTELY; for enemas per colostomy, depending upon what patient will tolerate 3. Patient would benefit from hydration, narcotic vacation 4. I discussed the above with Dr. Rich plan: Surgery will sign off; reconsult if clinically indicated (2) Presence of sigmoid colostomy Is this a current diagnosis for this admission?: Yes (3) Chronic narcotic use Is this a current diagnosis for this admission?: Yes (4) Chronic back pain Is this a current diagnosis for this admission?: Yes (5) Bedridden Is this a current diagnosis for this admission?: Yes (6) Rhonchi Is this a current diagnosis for this admission?: Yes
[2020-02-14 22:55] VITALS: BP 104/56
== END 2020-02-14 23:00 | disposition home or self-care (01) ==
LOC: ER 17:00
DX: K59.03 Drug induced constipation (principal); T40.2X5A Adverse effect of other opioids, initial encounter; E66.3 Overweight; R09.89 Other specified symptoms and signs involving the circulatory and respiratory systems; I25.10 Atherosclerotic heart disease of native coronary artery without angina pectoris; E11.9 Type 2 diabetes mellitus without complications; G89.29 Other chronic pain; M54.9 Dorsalgia, unspecified; I50.9 Heart failure, unspecified; I25.2 Old myocardial infarction; Z93.3 Colostomy status; Z79.899 Other long term (current) drug therapy; Z79.82 Long term (current) use of aspirin; Z79.2 Long term (current) use of antibiotics; Z90.49 Acquired absence of other specified parts of digestive tract; Z79.891 Long term (current) use of opiate analgesic; Z74.01 Bed confinement status; Z88.8 Allergy status to other drugs, medicaments and biological substances
CPT/HCPCS: 99283; 74018; A9270 ×2; J3490

== ENCOUNTER 2020-02-24 16:41 | Inpatient (IN) | payer MEDICARE, OTHER ==
[2020-02-24] MEDS ORDERED: NORMAL SALINE 1000 ML 1,000 ML IV PRN (17:20)
[2020-02-24] MEDS ORDERED: LIDOCAINE 1% INJ-PF (10 MG/ML) 30 ML SDV ONE (17:32)
--- NOTE | 2020-02-24 17:56 | ER Document Report ---
Entered by JANELLE DIMAS SCRIBE 02/24/20 [id number] Acting as scribe for:KEILY ALVAREZ DO ED General - General Stated Complaint: WEAKNESS Mode of Arrival: Medic Information source: Patient Notes: This 79 year old male patient s/p colostomy presents to the emergency department today with complaints of decreased p.o. intake and generalized weakness. On arrival here the patient had a blood pressure of 70/59 and the patient is somewhat responsive, answering his name but not much else. Patient shakes his head 'yes' when asked if he has pain but is unable to say where or answer any other questions. He was seen here on 02/13 for constipation. TRAVEL OUTSIDE OF THE [place] IN LAST 30 DAYS: No - Related Data Allergies/Adverse Reactions: alpha lipoic acid [From [facility]] Allergy (Severe, Verified 10/26/15 16:20) folic acid [From [facility]] Allergy (Severe, Verified 10/26/15 16:20) lutein [From [facility]] Allergy (Severe, Verified 10/26/15 16:20) multivitamin with minerals [From [facility]] Allergy (Severe, Verified 12/03 16:20) iron [Iron] Allergy (Intermediate, Verified 10/26/15 16:20) BLOOD THINNERS Allergy (Mild, Uncoded 10/26/15 16:20) blood thinners Allergy (Mild, Uncoded 10/26/15 16:20) DIABETIC MEDICATIONS Allergy (Mild, Uncoded 10/26/15 16:20) Past Medical History - General Information source: Emergency Med Personnel, [facility] Records Cannot obtain history due to: Unstable vital signs, Altered mental status - Social History Smoking Status: Unknown if Ever Smoked Family History: None, Reviewed & Not Pertinent - Past Medical History Cardiac Medical History: Reports: Hx Atrial Fibrillation, Hx Congestive Heart Failure, Hx Coronary Artery Disease - CONTROLLED WITH MEDS , Hx Heart Attack - 1993/ Pulmonary Medical History: Reports: Hx Bronchitis Endocrine Medical History: Reports: Hx Diabetes Mellitus Type 2 GI Medical History: Reports: Hx Gastroesophageal Reflux Disease Musculoskeletal Medical History: Reports Hx Arthritis Past Surgical History: Reports: Hx Appendectomy, Hx Cardiac Catheterization, Hx Cholecystectomy, Hx Colostomy, Hx Herniorrhaphy - Immunizations Immunizations up to date: Yes Hx Diphtheria, Pertussis, Tetanus Vaccination: Yes Review of Systems - Review of Systems -: Yes ROS unobtainable due to patient's medical condition Physical Exam - Vital signs Vitals: Temp 97.5 F 02/24/20 16:41 - Notes Notes: Physical Exam: General: Fraile, chronically ill appearing. Slow to respond to questions. HEENT: Normocephalic. Atraumatic. PERRL. Extraocular movements intact. Oropharynx clear. Dry oral mucosa. Neck: Supple. Non-tender. Respiratory: Mild respiratory distress. Diminished breath sounds bilaterally. Cardiovascular: Regular rate and rhythm. Weak radial and dorsalis pedis pulses. Abdominal: Morbidly obese. Diffusely tender to palpation. Colostomy in LLQ. No distension. Normal Bowel Sounds. Back: No gross abnormalities. Extremities: Moves all four extremities. Upper extremities: Normal inspection. Normal ROM. Lower extremities: Normal inspection. No edema. Normal ROM. Neurological: Will not participate in neuro exam, GCS of 15. Psychological: Normal affect. Normal Mood. Skin: Warm. Dry. Pale in color. Course - Re-evaluation Re-evalutation: 02/24/20 22:29 MDM 79 year old male with multiple medical problems - A fib, htn, DM, Copd, Colostomy left abd, asthma, chf is here from home via EMS for not feeling well and not eating well. He provides no reasonable history and is encephalopathic upon arrival. Says he hurts but will not localize. Rapidly a triple lumen is placed in right femoral vessel and IVF and then pressors initiated. Antibiotics ordered and sepsis fluids and I have consulted the ICU provider who has graciously agreed to see and evaluate for admission. Notable conditions here include acute kidney injury and bilateral pl effusions with what appears to be metastatic disease in the liver with muliple lesions noted. - Vital Signs Vital signs: Temp Pulse Resp BP Pulse Ox 98.2 F 69 20 112/66 98 02/25/20 19:37 02/25/20 20:00 02/26/20 00:18 02/26/20 00:18 02/26/20 00:17 - Laboratory Result Diagrams: 02/25/20 05:00 02/25/20 04:30 Laboratory results interpreted by me: 02/24/20 02/24/20 02/24/20 17:50 17:50 17:50 WBC 24.5 H RBC 3.88 L Hgb 12.2 L Hct 35.8 L RDW 16.4 H Plt Count 62 L Seg Neuts % (Manual) 89 H Band Neutrophils % 2 L Lymphocytes % (Manual) 3 L Abs Neuts (Manual) 22.3 H Abs Monocytes (Manual) 1.5 H PT 17.4 H Sodium 126.4 L Potassium 6.0 H* Chloride 95 L BUN 123 H Creatinine 3.70 H Est GFR ( Amer) 19 L Est GFR (MDRD) Non-Af 16 L POC Glucose Lactic Acid Magnesium Total Bilirubin 3.2 H Direct Bilirubin 2.5 H AST 76 H ALT 59 H Alkaline Phosphatase 220 H Creatine Kinase 48 L Total Protein 5.5 L Albumin 1.8 L Urine Protein Urine Blood Urine Urobilinogen Ur Leukocyte Esterase 02/24/20 02/24/20 02/24/20 17:50 19:27 20:10 WBC RBC Hgb Hct RDW Plt Count Seg Neuts % (Manual) Band Neutrophils % Lymphocytes % (Manual) Abs Neuts (Manual) Abs Monocytes (Manual) PT Sodium Potassium Chloride BUN Creatinine Est GFR ( Amer) Est GFR (MDRD) Non-Af POC Glucose 139 H Lactic Acid Magnesium 2.9 H Total Bilirubin Direct Bilirubin AST ALT Alkaline Phosphatase Creatine Kinase Total Protein Albumin Urine Protein 30 H Urine Blood LARGE H Urine Urobilinogen 4.0 H Ur Leukocyte Esterase LARGE H 02/24/20 21:05 WBC RBC Hgb Hct RDW Plt Count Seg Neuts % (Manual) Band Neutrophils % Lymphocytes % (Manual) Abs Neuts (Manual) Abs Monocytes (Manual) PT Sodium Potassium Chloride BUN Creatinine Est GFR ( Amer) Est GFR (MDRD) Non-Af POC Glucose Lactic Acid 3.0 H Magnesium Total Bilirubin Direct Bilirubin AST ALT Alkaline Phosphatase Creatine Kinase Total Protein Albumin Urine Protein Urine Blood Urine Urobilinogen Ur Leukocyte Esterase - Diagnostic Test Radiology reviewed: Image reviewed, Reports reviewed - EKG Interpretation by Me Rhythm: A.Fib - A fib normal axis repolarization abnormality no st elevation or depression my interpretation. Procedures - Central Line Right Femoral Time completed: 17:25 Consent obtained: Yes Central line pre-insertion: Sterile PPE donned, Chloraprep applied Central line lumen type: Triple Anesthetic type: 1% Lidocaine mL's of anesthesia: 10 Ultrasound guided: Yes Line secured with sutures: Yes Central line post-insertion: Blood return from lumens, Sutured, Sterile dressing applied Number of attempts: 1 Complications: No Critical Care Note - Critical Care Note Total time excluding time spent on procedures (mins): 60 Discharge - Discharge Clinical Impression: Sepsis associated hypotension, Acute encephalopathy, Acute kidney injury, Hyperkalemia Diabetes mellitus Qualifiers: Diabetes mellitus type: type 2 Diabetes mellitus custodial insulin use: without custodial use Diabetes mellitus complication status: with other specified complication Qualified Code(s): E11.69 - Type 2 diabetes mellitus with other specified complication Condition: Serious Disposition: ADMITTED INPATIENT Admitting Provider: Dr. Lopez Unit Admitted: ICU I personally performed the services described in the documentation, reviewed and edited the documentation which was dictated to the scribe in my presence, and it accurately records my words and actions.
[2020-02-24] MEDS ORDERED: NORMAL SALINE 1000 ML 1,000 ML IV ONE ×2 (18:05)
[2020-02-24 18:07] LABS: HEMATOCRIT 35.8 % (37.9-51.0); HEMOGLOBIN 12.2 g/dL (13.5-17.0); MEAN CORPUSCULAR HEMOGLOBIN 31.4 pg (27.0-33.4); MEAN CORPUSCULAR HGB CONC 33.9 g/dL (32.0-36.0); MEAN CORPUSCULAR VOLUME 93 fl (80-97); RED BLOOD COUNT 3.88 10^6/uL (4.35-5.55); RED CELL DISTRIBUTION WIDTH 16.4 % (11.5-14.0); WHITE BLOOD COUNT 24.5 10^3/uL (4.0-10.5)
[2020-02-24] MEDS ORDERED: CEFTRIAXONE 1 GM/D5W RTU 1 GM/50 ML RTUPB IV ONE (18:12)
[2020-02-24 18:13] LABS: PLATELET COUNT 62 10^3/uL (150-450)
[2020-02-24 18:20] LABS: INTERNATIONAL RATION (INR) 1.41; PROTHROMBIN TIME 17.4 SEC (11.4-15.4)
[2020-02-24 18:22] LABS: ALBUMIN 1.8 g/dL (3.5-5.0); ALKALINE PHOSPHATASE 220 U/L (38-126); ANION GAP 8 (5-19); ASPARTATE AMINO TRANSFERASE 76 U/L (17-59); BILIRUBIN,DIRECT 2.5 mg/dL (0.0-0.4); BILIRUBIN,TOTAL 3.2 mg/dL (0.2-1.3); CALCIUM 9.2 mg/dL (8.4-10.2); CARBON DIOXIDE 23 mmol/L (22-30); CHLORIDE 95 mmol/L (98-107); CREATINE KINASE 48 U/L (55-170); GLUCOSE 106 mg/dL (75-110); TOTAL PROTEIN 5.5 g/dL (6.3-8.2)
[2020-02-24 18:25] LABS: ABSOLUTE LYMPHOCYTES# (MANUAL) 0.7 10^3/uL (0.5-4.7); ABSOLUTE MONOCYTES # (MANUAL) 1.5 10^3/uL (0.1-1.4); BAND NEUTROPHILS % (MANUAL) 2 % (3-5); BASOPHILS % (MANUAL) 0 % (0-2); EOSINOPHILS % (MANUAL) 0 % (0-6); LYMPHOCYTES % (MANUAL) 3 % (13-45); MONOCYTES % (MANUAL) 6 % (3-13); SEGMENTED NEUTROPHILS % (MAN) 89 % (42-78); TOTAL CELLS COUNTED 100
[2020-02-24 18:28] LABS: ANISOCYTOSIS 1+; OVALOCYTES SLIGHT; PLATELET COMMENT DECREASED; POIKILOCYTOSIS SLIGHT; POLYCHROMASIA SLIGHT
[2020-02-24 18:34] LABS: CREATINE KINASE MB 1.83 ng/mL (<4.55)
[2020-02-24 18:37] LABS: BLOOD UREA NITROGEN 123 mg/dL (7-20)
[2020-02-24 18:39] LABS: TROPONIN I 0.053 ng/mL
[2020-02-24] MEDS ORDERED: INSULIN REG, HUMAN 100 UNIT/ML 3 ML VIAL (PYX) IV ONE (18:53)
[2020-02-24] MEDS ORDERED: SODIUM BICARBONATE 8.4% INJ 50 MEQ/50 ML DISP.SYRIN IV ONE (18:53)
[2020-02-24] MEDS ORDERED: CALCIUM GLUCONATE 1000 MG/10 ML INJ IV ONE (18:53)
[2020-02-24] MEDS ORDERED: DEXTROSE 50%-WATER 25 GM/50 ML DISP.SYRIN IV ONE (18:55)
--- NOTE | 2020-02-24 19:07 | RADIOLOGY REPORT (SQ) ---
EXAM DESCRIPTION: CHEST SINGLE VIEW IMAGES COMPLETED DATE/TIME: 02/24/2020 6:40 pm REASON FOR STUDY: weakness low bp COMPARISON: 03/28/2012 EXAM PARAMETERS: NUMBER OF VIEWS: One view. TECHNIQUE: Single frontal radiographic view of the chest acquired. RADIATION DOSE: NA LIMITATIONS: None. FINDINGS: LUNGS AND PLEURA: Increased interstitial markings predominantly at the lung bases. Small bilateral pleural effusions. No focal consolidation or pneumothorax. MEDIASTINUM AND HILAR STRUCTURES: No masses. Contour normal. HEART AND VASCULAR STRUCTURES: Cardiomegaly with central vascular congestion. BONES: No acute findings. HARDWARE: None in the chest. OTHER: No other significant finding. IMPRESSION: Findings suggest CHF exacerbation. Infectious etiology is not excluded. TECHNICAL DOCUMENTATION: JOB ID: [id number] 2010 [employer]- All Rights Reserved Reading location - IP/workstation name: [email or web address]
--- NOTE | 2020-02-24 19:11 | RADIOLOGY REPORT (SQ) ---
EXAM DESCRIPTION: KUB/ABDOMEN (SINGLE VIEW) IMAGES COMPLETED DATE/TIME: 02/24/2020 6:41 pm REASON FOR STUDY: central line placement COMPARISON: 02/14/2020 NUMBER OF VIEWS: One view. TECHNIQUE: Supine radiographic image of the abdomen acquired. LIMITATIONS: None. FINDINGS: BOWEL GAS PATTERN: Normal bowel gas pattern. No dilated loops. CALCIFICATIONS: No suspicious calcifications. SOFT TISSUES: No gross mass or suggestion of organomegaly. HARDWARE: There appears to be a bladder catheter in place. An additional curvilinear tubular structu re projecting over the right hemiabdomen may represent a vascular access catheter, terminating in the region of the iliac artery or vein. Apparent left lower quadrant ostomy. Chain sutures are seen wi thin the left lower quadrant. Right upper quadrant cholecystectomy clips. BONES: No acute fracture. No worrisome bone lesions. OTHER: No other significant finding. IMPRESSION: 1. Nonspecific, nonobstructed bowel gas pattern. 2. Lines and tubes as above. TECHNICAL DOCUMENTATION: JOB ID: [id number] 2010 [employer]- All Rights Reserved Reading location - IP/workstation name: [email or web address]
[2020-02-24] MEDS ORDERED: DEXTROSE 5%-WATER 250 ML with NOREPINEPHRINE BITARTRATE 4 MG IV PRN ×4 (19:26→22:00)
[2020-02-24] MEDS ORDERED: NOREPINEPHRINE BITARTRATE INJ/PF 4 MG/4 ML SDV IV ONE (19:34)
[2020-02-24 20:35] LABS: APPEARANCE,URINE CLOUDY; BILIRUBIN,URINE NEGATIVE (NEGATIVE); COLOR,URINE AMBER; GLUCOSE, URINE NEGATIVE (NEGATIVE); KETONES,URINE NEGATIVE (NEGATIVE); LEUKOCYTE ESTERASE,URINE LARGE (NEGATIVE); NITRITE,URINE NEGATIVE (NEGATIVE); PROTEIN,URINE 30 mg/dL (NEGATIVE); URINE SPECIFIC GRAVITY 1.015
--- NOTE | 2020-02-24 21:16 | RADIOLOGY REPORT (SQ) ---
EXAM DESCRIPTION: Noncontrast CT head CLINICAL HISTORY: 79 years Male dizziness TECHNIQUE: Noncontrast CT head. All CT scans at this facility use dose modulation, iterative reconstruction, and/or weight based dosing when appropriate to reduce radiation dose to as low as reasonably achievable. COMPARISON: None. FINDINGS: There is moderate cerebral volume loss. Patchy periventricular and subcortical white matter hypodensities are nonspecific, but in a pattern compatible with chronic microvascular ischemic change. No acute hemorrhage or mass effect. Although examination is not optimized to evaluate intracranial vascularity given noncontrast technique, there is evidence of intracranial atherosclerotic vascular disease. Visualized portions of paranasal sinuses demonstrate a small mucous retention cyst versus polyp in the medial left maxillary sinus. The mastoids are clear. Visualized portions of the calvarium are within normal limits. IMPRESSION: 1. No acute intracranial hemorrhage or mass effect. Findings compatible with volume loss and chronic microvascular ischemic change are present. If there is clinical concern for acute stroke, consider MRI brain as a more sensitive evaluation.
[2020-02-24 21:23] LABS: VENOUS BLOOD BASE EXCESS -3.8 mmol/L; VENOUS BLOOD HCO3 20.6 mmol/L (20-32); VENOUS BLOOD PCO2 35.1 mmHg (35-63); VENOUS BLOOD PH 7.39 (7.30-7.42)
--- NOTE | 2020-02-24 21:25 | RADIOLOGY REPORT (SQ) ---
EXAM DESCRIPTION: CT ABDOMEN PELVIS WITHOUT IV CONTRAST COMPLETED DATE/TME: 02/24/2020 18:51 CLINICAL HISTORY: 79 years, Male, abd pain COMPARISON: Prior CT dated 12/15/2016 TECHNIQUE: Noncontrast CT abdomen/pelvis was acquired. Coronal and sagittal reformations were created. Images stored on PACS. All CT scanners at this facility use dose modulation, iterative reconstruction, and/or weight based dosing when appropriate to reduce radiation dose to as low as reasonably achievable (ALARA). [facility]: Dose Right [facility]: CareDose [facility]: Dose Right [facility]: Teradose 4D [facility]: [employer] LIMITATIONS: None. FINDINGS: Limited evaluation of the lower chest reveals small bilateral pleural effusions with associated bibasilar airspace disease. Calcifications are evident about the coronary vessels and thoracic aorta. The heart is enlarged. In addition, the main pulmonary artery is also enlarged, measuring up to 3.5 cm in short axis. Evaluation of the liver parenchyma reveals multiple hypodense masses throughout the parenchyma, the largest of which is located within the anterior aspect of the right hepatic lobe measuring 7.6 x 7.3 cm in size on image 23 of series 3. An additional hypodense mass is noted about the left hepatic lobe on image 19 of series 3 measuring 5.5 x 3.9 cm in size on image 19 of series 3. These lesions appear new from the previous exam dated 12/15/2016. Spleen and both adrenal glands appear normal. A multilobulated soft tissue mass is evident about the expected location of the pancreatic head. This is best visualized on image 35 of series 3. It is uncertain whether this corresponds to a pancreatic mass or simply significant peripancreatic/issac hepatic lymphadenopathy. However, given that the pancreatic body/tail does not appear atrophic, the former is favored. The gallbladder is absent. Likewise, no obvious intrahepatic or common bile duct dilatation is clearly identified. Calculi are noted about the left kidney/renal pelvis, the largest of which is located about the renal pelvis measuring 1.2 x 1.0 cm in size in image 45 of series 3. No hydronephrosis or hydroureter. The urinary bladder is collapsed given the presence of a Arredondo catheter. Bilateral fat-containing inguinal hernias are noted. There are postsurgical changes of right hemicolectomy as well as sigmoid colectomy with left lower quadrant end ostomy. An associated moderately sized parastomal hernia is noted containing a short segment of small bowel. No evidence of bowel obstruction. Several additional surgical александр are noted about the mesentery. Several mildly enlarged mesenteric lymph nodes are also evident. Small amount of perihepatic ascites is evident. Calcifications are evident about the abdominal aorta and proximal iliac vessels. Several enlarged retroperitoneal lymph nodes are noted, the largest conglomeration of which is located about the left para-aortic region measuring up to 5.3 x 2.2 cm in size on image 46 of series 3. No drainable fluid collections. In irregular area of encapsulated fat is noted about the right hemiabdomen, likely indicating fat necrosis. This is unchanged. Bone windows show no destructive osseous lesions. IMPRESSION: Innumerable hypodense masses throughout the liver parenchyma, new from the previous exam dated 12/15/2016, and concerning for metastatic disease. Multilobulated soft tissue mass located in the region of the issac hepatis eventually surrounding the pancreatic head, most likely corresponding to bulky lymphadenopathy as opposed to a pancreatic head mass given the absence of significant atrophy involving the pancreatic body/tail. Superimposed retroperitoneal and mesenteric lymphadenopathy. These findings are also concerning for malignancy, either lymphoma or metastatic disease. Given the concomitant findings within the liver, the latter is favored. Small bilateral pleural effusions with associated bibasilar consolidation, presumably atelectasis although pneumonia is also a possibility. Postsurgical changes of right hemicolectomy and sigmoid colectomy with left lower quadrant ostomy. An associated moderately sized parastomal hernia. No evidence of obstruction. Main pulmonary arterial enlargement. Correlate for pulmonary hypertension. Small amount of perihepatic ascites. TECHNICAL DOCUMENTATION: Quality ID # [id number]: Final reports with documentation of one or more dose reduction techniques (e.g., Automated exposure control, adjustment of the mA and/or kV according to patient size, use of iterative reconstruction technique) copyright 2011 [employer]- All Rights Reserved
[2020-02-24] MEDS: LORAZEPAM INJ 2 MG/1 ML VIAL IV ONE (21:45)
[2020-02-24] MEDS ORDERED: RINGERS SOLUTION,LACTATED 1,000 ML IV PRN (21:45)
[2020-02-24] MEDS ORDERED: ACETAMINOPHEN 325 MG TABLET PO PRN (21:45)
[2020-02-24] MEDS ORDERED: ONDANSETRON HCL INJ/PF 4 MG/2 ML SDV IV PRN (21:45)
[2020-02-24] MEDS: DEXTROSE 5%-WATER 250 ML with NOREPINEPHRINE BITARTRATE 4 MG IV PRN ×2 (22:00)
[2020-02-24 23:13] LABS: HEMATOCRIT 35.9 % (37.9-51.0); HEMOGLOBIN 12.2 g/dL (13.5-17.0); MEAN CORPUSCULAR HEMOGLOBIN 31.7 pg (27.0-33.4); MEAN CORPUSCULAR VOLUME 93 fl (80-97); RED BLOOD COUNT 3.84 10^6/uL (4.35-5.55); RED CELL DISTRIBUTION WIDTH 16.6 % (11.5-14.0)
[2020-02-24 23:28] LABS: ALBUMIN 1.9 g/dL (3.5-5.0); ALKALINE PHOSPHATASE 213 U/L (38-126); ANION GAP 12 (5-19); ASPARTATE AMINO TRANSFERASE 72 U/L (17-59); BILIRUBIN,DIRECT 2.3 mg/dL (0.0-0.4); BILIRUBIN,TOTAL 2.9 mg/dL (0.2-1.3); BLOOD UREA NITROGEN 117 mg/dL (7-20); CARBON DIOXIDE 18 mmol/L (22-30); CHLORIDE 98 mmol/L (98-107); GLUCOSE 123 mg/dL (75-110); PHOSPHORUS 6.3 mg/dL (2.5-4.5); POTASSIUM 5.8 mmol/L (3.6-5.0); TOTAL PROTEIN 5.7 g/dL (6.3-8.2)
[2020-02-24] MEDS ORDERED: FENTANYL CITRATE INJ/PF 100 MCG/2 ML AMPUL ONE (23:28)
[2020-02-24] MEDS ORDERED: PHENYLEPHRINE HCL INJ/PF 10 MG/1 ML SDV ONE (23:37)
[2020-02-24 23:42] LABS: PLATELET COUNT 69 10^3/uL (150-450)
[2020-02-24 23:44] LABS: ABSOLUTE LYMPHOCYTES# (MANUAL) 0.6 10^3/uL (0.5-4.7); ABSOLUTE MONOCYTES # (MANUAL) 2.8 10^3/uL (0.1-1.4); BASOPHILS % (MANUAL) 0 % (0-2); EOSINOPHILS % (MANUAL) 0 % (0-6); LYMPHOCYTES % (MANUAL) 2 % (13-45); MONOCYTES % (MANUAL) 10 % (3-13); SEGMENTED NEUTROPHILS % (MAN) 88 % (42-78); TOTAL CELLS COUNTED 100
[2020-02-24 23:45] LABS: ANISOCYTOSIS 1+; PLATELET COMMENT DECREASED
[2020-02-24] MEDS: DEXTROSE 5%-WATER 250 ML with PHENYLEPHRINE HCL 40 MG IV PRN ×2 (23:50)
[2020-02-25] MEDS ORDERED: NOREPINEPHRINE BITARTRATE INJ/PF 4 MG/4 ML SDV IV ONE ×3 (00:23→04:46)
[2020-02-25] MEDS ORDERED: NORMAL SALINE 1000 ML 1,000 ML IV PRN ×2 (00:28→19:06)
[2020-02-25] MEDS: LORAZEPAM INJ 2 MG/1 ML VIAL IV ONE (00:40)
[2020-02-25] MEDS ORDERED: LORAZEPAM INJ 2 MG/1 ML VIAL ONE (00:42)
[2020-02-25] MEDS ORDERED: VANCOMYCIN HCL INJ 1000 MG VIAL IV PRN (00:44)
[2020-02-25] MEDS ORDERED: HALOPERIDOL LACTATE INJ 5 MG/1 ML VIAL IV PRN (00:46)
[2020-02-25] MEDS: DEXTROSE 5%-WATER 250 ML with NOREPINEPHRINE BITARTRATE 4 MG IV PRN ×18 (00:50→20:05)
[2020-02-25] MEDS ORDERED: VANCOMYCIN HCL 1,000 MG in DEXTROSE 5%-WATER 250 ML IV ONE (01:30)
[2020-02-25] MEDS ORDERED: LORAZEPAM INJ 2 MG/1 ML VIAL IV ONE (02:00)
[2020-02-25] MEDS ORDERED: FENTANYL CITRATE INJ/PF 100 MCG/2 ML AMPUL IV ONE (02:00)
[2020-02-25] MEDS ORDERED: HALOPERIDOL LACTATE INJ 5 MG/1 ML VIAL IV ONE (02:00)
[2020-02-25] MEDS ORDERED: SODIUM BICARBONATE 8.4% INJ 50 MEQ/50 ML DISP.SYRIN IV ONE (03:10)
[2020-02-25] MEDS: PANTOPRAZOLE SODIUM 40 MG VIAL IV SCH ×2 (03:27→10:21)
--- NOTE | 2020-02-25 04:03 | CRITICAL CARE ADMISSION REPORT ---
HPI Date:: 02/24/20 Time:: 23:00 Reason for ICU Reason:: Septic Shock Admission Date/Time & PCP: Admission Date/Time: 02/24/20 21:51 Primary Care Provider: HPI: 79 year old male with multiple medical problems - A fib, htn, DM, Copd, Colostomy left abd, asthma, chf is here from home via EMS for not feeling well and not eating well. He provides no reasonable history and is encephalopathic upon arrival. He was hypotensive, vasopressors initiated. Notable conditions here include acute kidney injury and bilateral pl effusions with what appears to be metastatic disease in the liver with muliple lesions noted. - Diagnosis/Plan (1) Acute encephalopathy Is this a current diagnosis for this admission?: Yes Plan: Continue to monitor hemodynamics, labs (2) Acute kidney injury Is this a current diagnosis for this admission?: Yes Plan: IV fluid resuscitation. Maintaining MAP > 60 mmhg with vasopressors (3) Diabetes mellitus Qualifiers: Diabetes mellitus type: type 2 Diabetes mellitus usp insulin use: without terminal make up operator use Diabetes mellitus complication status: with other specified complication Qualified Code(s): E11.69 - Type 2 diabetes mellitus with other specified complication Is this a current diagnosis for this admission?: Yes Plan: Monitor BS. (4) Sepsis associated hypotension Is this a current diagnosis for this admission?: Yes Plan: Sepsis protocol initiated. BCx 2 , fluid resuscitation, emperic IV ABT. Continue Norpeinephrine and Neosynephrine (5) Abdominal wall abscess Is this a current diagnosis for this admission?: Yes Plan: CT scan obatined . Start IV ABT start metronidazole (6) Bedridden Is this a current diagnosis for this admission?: No Plan: per family (7) Chronic back pain Is this a current diagnosis for this admission?: Yes Plan: Patient has chronic pain (8) Chronic narcotic use Is this a current diagnosis for this admission?: Yes Past Medical History Cardiac Medical History: Reports: Atrial Fibrillation, Congestive Heart Failure, Coronary Artery Disease - CONTROLLED WITH MEDS , Myocardial Infarction - 1993/ Denies: Hypertension Pulmonary Medical History: Reports: Bronchitis Denies: Asthma, Chronic Obstructive Pulmonary Disease (COPD), Pneumonia Neurological Medical History: Denies: Seizures Endocrine Medical History: Reports: Diabetes Mellitus Type 1, Diabetes Mellitus Type 2 GI Medical History: Reports: Gastroesophageal Reflux Disease Musculoskeltal Medical History: Reports: Arthritis Psychiatric Medical History: Reports: Depression Hematology: Reports: Anemia Past Surgical History Past Surgical History: Reports: Appendectomy, Cardiac Catheterization, Cholecystectomy, Colostomy, Herniorrhaphy Denies: Pacemaker Social/Family History - Social History Lives with: Family Smoking Status: Unknown if Ever Smoked Frequency of Alcohol Use: Occasional Hx Recreational Drug Use: No Drugs: None Hx Prescription Drug Abuse: No - Medication/Allergies Home Medications: Ascorbic Acid [Vitamin C 500 mg Tablet] 500 mg PO DAILY 07/03/13 Aspirin [Ecotrin] 81 mg PO DAILY 07/03/13 Furosemide [Lasix 40 mg Tablet] 20 mg PO DAILY 07/03/13 Metoprolol Tartrate [Lopressor 25 mg Tablet] 25 mg PO Q12 07/03/13 Nitroglycerin [Nitrostat 0.4 mg (1/150 Gr) Tabs 25/Bottle] 0.4 mg PO ASDIR PRN 07/03/13 Simvastatin 20 mg PO DAILY 07/03/13 Ipratropium/Albuterol Sulfate [Combivent Inhaler] 1 puff IH DAILY 10/25/15 Latanoprost 1 drop OU DAILY 10/25/15 Loratadine 10 mg PO DAILY 10/25/15 Multivit-Mins/Iron/Folic/Lycop [Centrum Men's Tablet] 1 each PO DAILY 10/25/15 Cephalexin Monohydrate [Keflex 500 mg Capsule] 500 mg PO QID #28 capsule 03/29/19 Ciprofloxacin HCl [Cipro 500 mg Tablet] 500 mg PO BID 7 Days #14 tablet 03/29/19 Allergies/Adverse Reactions: alpha lipoic acid [From [facility]] Allergy (Severe, Verified 10/26/15 16:20) folic acid [From [facility]] Allergy (Severe, Verified 10/26/15 16:20) lutein [From [facility]] Allergy (Severe, Verified 10/26/15 16:20) multivitamin with minerals [From [facility]] Allergy (Severe, Verified 10/26/15 16:20) iron [Iron] Allergy (Intermediate, Verified 10/26/15 16:20) BLOOD THINNERS Allergy (Mild, Uncoded 10/26/15 16:20) blood thinners Allergy (Mild, Uncoded 10/26/15 16:20) DIABETIC MEDICATIONS Allergy (Mild, Uncoded 10/26/15 16:20) Review of Systems Constitutional: PRESENT: as per HPI Eyes: PRESENT: visual disturbances Ears: PRESENT: other Cardiovascular: PRESENT: other Respiratory: PRESENT: cough, other Gastrointestinal: PRESENT: abdominal pain, nausea Genitourinary: PRESENT: as per HPI Musculoskeletal: PRESENT: back pain, joint swelling, muscle weakness Integumentary: PRESENT: as per HPI, wounds Neurological: PRESENT: as per HPI, focal weakness Psychiatric: PRESENT: anxiety Endocrine: PRESENT: other Allergic/Immunologic: PRESENT: as per HPI Physical Exam Vital Signs: Temp Pulse Resp BP Pulse Ox 97.9 F 72 33 H 99/70 L 100 02/25/20 02:00 02/24/20 22:40 02/25/20 02:28 02/25/20 02:28 02/25/20 02:28 Intake & Output 02/23/20 02/24/20 02/25/20 06:59 06:59 06:59 Intake Total 4661 Output Total 35 Balance 4626 Weight 119.3 kg Weight/Height Weight 119.3 kg Height 6 ft General appearance: PRESENT: mild distress, thin Head exam: PRESENT: atraumatic Eye exam: PRESENT: PERRLA Ear exam: PRESENT: normal external ear exam Mouth exam: PRESENT: dry mucosa, moist, tongue midline Teeth exam: PRESENT: other Respiratory exam: PRESENT: chest wall tenderness, clear to auscultation corona Cardiovascular exam: PRESENT: irregular rhythm, systolic murmur Pulses: PRESENT: +1 pedal pulses bilateral Vascular exam: PRESENT: pallor GI/Abdominal exam: PRESENT: hypoactive bowel sounds, rigid - RUQ colostomy Laboratory/Radiographs Laboratory Results: 02/24/20 22:55 02/24/20 22:55 02/24/20 02/24/20 02/24/20 17:50 17:50 17:50 WBC 24.5 H RBC 3.88 L Hgb 12.2 L Hct 35.8 L MCV 93 MCH 31.4 MCHC 33.9 RDW 16.4 H Plt Count 62 L Seg Neutrophils % Not Reportable VBG pH VBG pCO2 VBG HCO3 VBG Base Excess Sodium 126.4 L Potassium 6.0 H* Chloride 95 L Carbon Dioxide 23 Anion Gap 8 BUN 123 H Creatinine 3.70 H Est GFR ( Amer) 19 L Glucose 106 Lactic Acid Calcium 9.2 Phosphorus Magnesium 2.9 H Total Bilirubin 3.2 H AST 76 H Alkaline Phosphatase 220 H Total Protein 5.5 L Albumin 1.8 L Urine Color Urine Appearance Urine pH Ur Specific [place] Urine Protein Urine Glucose (UA) Urine Ketones Urine Blood Urine Nitrite Ur Leukocyte Esterase Urine WBC (Auto) Urine RBC (Auto) 02/24/20 02/24/20 02/24/20 20:10 21:05 21:05 WBC RBC Hgb Hct MCV MCH MCHC RDW Plt Count Seg Neutrophils % VBG pH 7.39 VBG pCO2 35.1 VBG HCO3 20.6 VBG Base Excess -3.8 Sodium Potassium Chloride Carbon Dioxide Anion Gap BUN Creatinine Est GFR ( Amer) Glucose Lactic Acid 3.0 H Calcium Phosphorus Magnesium Total Bilirubin AST Alkaline Phosphatase Total Protein Albumin Urine Color MARY JO Urine Appearance CLOUDY Urine pH 5.0 Ur Specific [place] 1.015 Urine Protein 30 H Urine Glucose (UA) NEGATIVE Urine Ketones NEGATIVE Urine Blood LARGE H Urine Nitrite NEGATIVE Ur Leukocyte Esterase LARGE H Urine WBC (Auto) >182 Urine RBC (Auto) 91 02/24/20 02/24/20 02/24/20 22:55 22:55 22:55 WBC 28.0 H RBC 3.84 L Hgb 12.2 L Hct 35.9 L MCV 93 MCH 31.7 MCHC 34.0 RDW 16.6 H Plt Count 69 L Seg Neutrophils % Not Reportable VBG pH VBG pCO2 VBG HCO3 VBG Base Excess Sodium 127.9 L Potassium 5.8 H Chloride 98 Carbon Dioxide 18 L Anion Gap 12 BUN 117 H Creatinine 3.53 H Est GFR ( Amer) 20 L Glucose 123 H Lactic Acid 4.8 H Calcium 9.0 Phosphorus 6.3 H Magnesium 2.7 H Total Bilirubin 2.9 H AST 72 H Alkaline Phosphatase 213 H Total Protein 5.7 L Albumin 1.9 L Urine Color Urine Appearance Urine pH Ur Specific [place] Urine Protein Urine Glucose (UA) Urine Ketones Urine Blood Urine Nitrite Ur Leukocyte Esterase Urine WBC (Auto) Urine RBC (Auto) 02/24/20 02/24/20 02/24/20 17:50 17:50 22:55 Creatine Kinase 48 L CK-MB (CK-2) 1.83 Troponin I 0.053 0.054 Impressions: Chest X-Ray 02/24/20 00:00 IMPRESSION: Findings suggest CHF exacerbation. Infectious etiology is not excluded. KUB X-Ray 02/24/20 00:00 IMPRESSION: 1. Nonspecific, nonobstructed bowel gas pattern. 2. Lines and tubes as above. Head CT 02/24/20 18:09 IMPRESSION: 1. No acute intracranial hemorrhage or mass effect. Findings compatible with volume loss and chronic microvascular ischemic change are present. If there is clinical concern for acute stroke, consider MRI brain as a more sensitive evaluation. Abdomen/Pelvis CT 02/24/20 18:51 IMPRESSION: Innumerable hypodense masses throughout the liver parenchyma, new from the previous exam dated 12/15/2016, and concerning for metastatic disease. Multilobulated soft tissue mass located in the region of the issac hepatis eventually surrounding the pancreatic head, most likely corresponding to bulky lymphadenopathy as opposed to a pancreatic head mass given the absence of significant atrophy involving the pancreatic body/tail. Superimposed retroperitoneal and mesenteric lymphadenopathy. These findings are also concerning for malignancy, either lymphoma or metastatic disease. Given the concomitant findings within the liver, the latter is favored. Small bilateral pleural effusions with associated bibasilar consolidation, presumably atelectasis although pneumonia is also a possibility. Postsurgical changes of right hemicolectomy and sigmoid colectomy with left lower quadrant ostomy. An associated moderately sized parastomal hernia. No evidence of obstruction. Main pulmonary arterial enlargement. Correlate for pulmonary hypertension. Small amount of perihepatic ascites. TECHNICAL DOCUMENTATION: Quality ID # [id number]: Final reports with documentation of one or more dose reduction techniques (e.g., Automated exposure control, adjustment of the mA and/or kV according to patient size, use of iterative reconstruction technique) copyright 2011 [employer]- All Rights Reserved All labs, radiographs, diagnostic studies and EKGs were personally reviewed: Yes In addition, reports of radiographic and diagnostic studies were read: Yes Critical Time Critical Time (minutes): 60 -: The care of a critically ill patient is dynamic. This note represents a static moment in the admission process. Orders and treatments may be given simultaneously and urgently, and time is not internet sales representative of the treatment process. This patient requires Critical Care secondary to life threatening organ or limb dysfunction. Without Critical Care services, the patient is at risk for increased mortality and morbidity.
[2020-02-25] MEDS ORDERED: GLUCAGON,HUMAN RECOMB 1 MG INJ IM PRN (04:59)
[2020-02-25] MEDS ORDERED: DEXTROSE 50%-WATER 25 GM/50 ML DISP.SYRIN IV PRN ×2 (04:59)
[2020-02-25] MEDS ORDERED: DEXTROSE 40% GEL 15 GM TUBE PO PRN ×2 (04:59)
[2020-02-25 05:10] LABS: ALBUMIN 1.7 g/dL (3.5-5.0); ALKALINE PHOSPHATASE 187 U/L (38-126); ANION GAP 11 (5-19); ASPARTATE AMINO TRANSFERASE 75 U/L (17-59); BILIRUBIN,TOTAL 2.6 mg/dL (0.2-1.3); BLOOD UREA NITROGEN 113 mg/dL (7-20); CALCIUM 8.7 mg/dL (8.4-10.2); CARBON DIOXIDE 20 mmol/L (22-30); CHLORIDE 97 mmol/L (98-107); GLUCOSE 209 mg/dL (75-110); PHOSPHORUS 6.3 mg/dL (2.5-4.5); POTASSIUM 5.8 mmol/L (3.6-5.0)
[2020-02-25 05:19] LABS: TROPONIN I 0.059 ng/mL
[2020-02-25 05:27] LABS: HEMOGLOBIN 11.5 g/dL (13.5-17.0); MEAN CORPUSCULAR HEMOGLOBIN 31.5 pg (27.0-33.4); MEAN CORPUSCULAR HGB CONC 33.8 g/dL (32.0-36.0); MEAN CORPUSCULAR VOLUME 93 fl (80-97); RED BLOOD COUNT 3.64 10^6/uL (4.35-5.55); RED CELL DISTRIBUTION WIDTH 16.6 % (11.5-14.0)
[2020-02-25 05:33] LABS: PLATELET COUNT 67 10^3/uL (150-450)
[2020-02-25 05:43] LABS: INTERNATIONAL RATION (INR) 1.78; PROTHROMBIN TIME 20.8 SEC (11.4-15.4)
[2020-02-25 05:44] LABS: PARTIAL THROMBOPLASTIN TIME 36.2 SEC (23.5-35.8)
[2020-02-25] MEDS: METRONIDAZOLE 500 MG/NS RTU 500 MG/100 ML RTUPB IV SCH ×2 (05:44→17:32)
[2020-02-25] MEDS: INSULIN LISPRO 100 UNIT/ML 3 ML VIAL SUBCUT SCH ×3 (05:45→17:32)
[2020-02-25 05:53] LABS: ABSOLUTE LYMPHOCYTES# (MANUAL) 1.2 10^3/uL (0.5-4.7); ABSOLUTE MONOCYTES # (MANUAL) 0.9 10^3/uL (0.1-1.4); BAND NEUTROPHILS % (MANUAL) 1 % (3-5); BASOPHILS % (MANUAL) 0 % (0-2); EOSINOPHILS % (MANUAL) 0 % (0-6); LYMPHOCYTES % (MANUAL) 4 % (13-45); MONOCYTES % (MANUAL) 3 % (3-13); SEGMENTED NEUTROPHILS % (MAN) 92 % (42-78); TOTAL CELLS COUNTED 100
[2020-02-25 05:55] LABS: ANISOCYTOSIS 1+; PLATELET COMMENT DECREASED
[2020-02-25] MEDS ORDERED: PIPERACILLIN SODIUM/TAZOBACTAM 3.375 GM in NORMAL SALINE 100 ML IV SCH (06:00)
[2020-02-25] MEDS ORDERED: PIPERACILLIN/TAZOBACTAM 4.5 GM VIAL IV PRN (06:00)
[2020-02-25] MEDS ORDERED: PIPERACILLIN SODIUM/TAZOBACTAM 4.5 GM in NORMAL SALINE 100 ML IV SCH ×2 (06:00→11:00)
[2020-02-25] MEDS ORDERED: DEXTROSE 5%-WATER 1000 ML 1,000 ML with SODIUM BICARBONATE 150 MEQ IV SCH ×2 (06:45)
[2020-02-25] MEDS ORDERED: VASOPRESSIN INJ 20 UNIT/1 ML VIAL ONE (08:39)
[2020-02-25] MEDS: FONDAPARINUX SODIUM INJ 2.5 MG/0.5 ML DISP.SYRIN SUBCUT SCH (08:53)
--- NOTE | 2020-02-25 09:51 | RADIOLOGY REPORT (SQ) ---
EXAM DESCRIPTION: CHEST SINGLE VIEW IMAGES COMPLETED DATE/TIME: 02/25/2020 6:19 am REASON FOR STUDY: pneumonia COMPARISON: 02/24/2020 EXAM PARAMETERS: NUMBER OF VIEWS: One view. TECHNIQUE: Single frontal radiographic view of the chest acquired. RADIATION DOSE: NA LIMITATIONS: None. FINDINGS: LUNGS AND PLEURA: Stable multifocal mixed interstitial and airspace opacities involving pr edominantly the lung bases. Small bilateral pleural effusions. No pneumothorax. MEDIASTINUM AND HILAR STRUCTURES: No masses. Contour normal. HEART AND VASCULAR STRUCTURES: Stable cardiomegaly. BONES: No acute findings. HARDWARE: None in the chest. OTHER: No other significant finding. IMPRESSION: Stable mixed interstitial and airspace opacities involving predominantly the lung bases. No evidence of adverse trend. TECHNICAL DOCUMENTATION: JOB ID: [id number] 2010 [employer]- All Rights Reserved Reading location - IP/workstation name: [email or web address]
[2020-02-25] MEDS: DEXTROSE 5%-WATER 250 ML with VASOPRESSIN 100 UNIT IV PRN ×2 (09:58)
[2020-02-25] MEDS: DOCUSATE SODIUM 100 MG CAPSULE PO SCH ×2 (10:14→17:33)
[2020-02-25 10:29] LABS: ARTERIAL BLOOD BASE EXCESS -7.1 mmol/L; ARTERIAL BLOOD H2CO3 0.93 mmol/L (1.05-1.35); ARTERIAL BLOOD HCO3 17.1 mmol/L (20-24); ARTERIAL BLOOD PCO2 30.9 mmHg (35-45); ARTERIAL BLOOD PH 7.36 (7.35-7.45); ARTERIAL BLOOD PO2 112.2 mmHg (80-100); ARTERIAL BLOOD TOTAL CO2 18.1 mmol/L (23-27)
[2020-02-25 10:30] LABS: ARTERIAL BLOOD FIO2 2L
[2020-02-25] MEDS: PIPERACILLIN SODIUM/TAZOBACTAM 2.25 GM in NORMAL SALINE 50 ML IV SCH (10:31)
[2020-02-25] MEDS: DEXTROSE 5%-WATER 250 ML with PHENYLEPHRINE HCL 40 MG IV PRN ×2 (10:39)
--- NOTE | 2020-02-25 11:31 | CDI QUERY ---
CDI Query CDI Review: Dear Provider, Please document your response if you agree with this query in the progress notes, not on the query. If possible, please further specify ACUTE ENCEPHALOPATHY documented in progress notes. ACUTE METABOLIC ENCEPHALOPATHY? ACUTE TOXIC ENCEPHALOPATHY? OTHER? UNABLE TO DETERMINE? Thanks, Danna Falk, CDI [phone]
[2020-02-25 12:21] LABS: PATH REVIEW PATHOLOGIST REVIEWED
[2020-02-25] MEDS: ALBUMIN HUMAN 12.5 GM/50 ML RTUINJ IV SCH ×4 (14:45→17:33)
--- NOTE | 2020-02-25 15:14 | EKG REPORT ---
SEVERITY:- ABNORMAL ECG - ATRIAL FIBRILLATION, V-RATE 61-106 VENTRICULAR PREMATURE COMPLEX PROBABLE INFERIOR INFARCT, AGE INDETERMINATE LATERAL LEADS ARE ALSO INVOLVED : Confirmed by: Yanira Matthew MD 25-Feb-2020 15:14:23
--- NOTE | 2020-02-25 15:16 | EKG REPORT ---
SEVERITY:- DEFECTIVE ECG - ATRIAL FIBRILLATION, V-RATE 50-72 BORDERLINE T ABNORMALITIES, DIFFUSE LEADS : Confirmed by: Yanira Matthew MD 25-Feb-2020 15:14:48
[2020-02-25 18:12] LABS: ARTERIAL BLOOD BASE EXCESS -9.2 mmol/L; ARTERIAL BLOOD H2CO3 0.88 mmol/L (1.05-1.35); ARTERIAL BLOOD HCO3 15.3 mmol/L (20-24); ARTERIAL BLOOD O2 SATURATION 97.3 % (94-98); ARTERIAL BLOOD PCO2 29.1 mmHg (35-45); ARTERIAL BLOOD PH 7.34 (7.35-7.45); ARTERIAL BLOOD PO2 100.3 mmHg (80-100); ARTERIAL BLOOD TOTAL CO2 16.2 mmol/L (23-27)
[2020-02-25 18:14] LABS: ARTERIAL BLOOD FIO2 2L
[2020-02-25] MEDS ORDERED: NORMAL SALINE 1000 ML 1,000 ML IV ONE (20:15)
[2020-02-25] MEDS ORDERED: HALOPERIDOL LACTATE INJ 5 MG/1 ML VIAL ONE (20:24)
[2020-02-25] MEDS ORDERED: MIDAZOLAM 2 MG/2 ML INJ ONE ×2 (21:02→21:06)
--- NOTE | 2020-02-25 23:30 | RADIOLOGY REPORT (SQ) ---
EXAM DESCRIPTION: X-RAY CHEST- One View CLINICAL HISTORY: Evaluate line placement. COMPARISON: February 25, 2020 at 5:45 AM TECHNIQUE: Single view of the chest. FINDINGS: There are overlying EKG leads. Patient is status post placement of left internal jugular central line. The distal tip lies in the expected location of the distal brachiocephalic vein versus proximal superior vena cava. Redemonstration of multifocal patchy opacities bilaterally, similar to prior exam. Pulmonary vascularity and the cardiomediastinal silhouette are stable. The osseous structures are unchanged. IMPRESSION: Status post placement of left internal jugular central line with positioning as detailed above. Otherwise stable examination.
[2020-02-25] MEDS ORDERED: NORMAL SALINE 1000 ML 500 ML IV PRN (23:54)
[2020-02-26] MEDS: PANTOPRAZOLE SODIUM 40 MG VIAL IV SCH ×2 (00:05→09:10)
[2020-02-26] MEDS: INSULIN LISPRO 100 UNIT/ML 3 ML VIAL SUBCUT SCH ×3 (00:05→12:05)
[2020-02-26] MEDS: PIPERACILLIN SODIUM/TAZOBACTAM 2.25 GM in NORMAL SALINE 50 ML IV SCH ×4 (00:12→12:06)
[2020-02-26] MEDS ORDERED: HALOPERIDOL LACTATE INJ 5 MG/1 ML VIAL IV ONE (00:30)
[2020-02-26] MEDS ORDERED: MIDAZOLAM 2 MG/2 ML INJ IV ONE ×2 (00:30)
[2020-02-26] MEDS ORDERED: NORMAL SALINE INJ/PF 0.9% 10 ML SDV IV PRN (00:46)
[2020-02-26] MEDS: DEXTROSE 5%-WATER 250 ML with NOREPINEPHRINE BITARTRATE 4 MG IV PRN ×12 (01:10→13:25)
--- NOTE | 2020-02-26 03:23 | Operative Report ---
Bedside Procedure - History of Present Illness History of Present Illness: 79 year old male with multiple medical problems - A fib, htn, DM, Copd, Colostomy left abd, asthma, chf is here from home via EMS for not feeling well and not eating well. He provides no reasonable history and is encephalopathic upon arrival. He was hypotensive, vasopressors initiated. Notable conditions here include acute kidney injury and bilateral pl effusions with what appears to be metastatic disease in the liver with muliple lesions noted. Indication for Procedure: Vasopressors Infusion Date: 02/25/20 Provider: LAILA BRIGHT - Central Line Left Internal jugular Time completed: 23:45 Consent obtained: Yes Central line pre-insertion: Sterile PPE donned, Betadine prep applied, Chloraprep applied, Sterile drapes applied Central line size (Fr.): 7 Central line lumen type: Triple Anesthetic type: 1% Lidocaine Ultrasound guided: Yes Line secured with sutures: Yes Central line post-insertion: Blood return from lumens, Biopatch applied, Sutured, Position confirmed w/ CXR Number of attempts: 2 Complications: No
[2020-02-26] MEDS: DEXTROSE 5%-WATER 250 ML with PHENYLEPHRINE HCL 40 MG IV PRN ×8 (04:24→13:30)
[2020-02-26 04:48] LABS: HEMATOCRIT 30.9 % (37.9-51.0); HEMOGLOBIN 10.2 g/dL (13.5-17.0); MEAN CORPUSCULAR HEMOGLOBIN 31.4 pg (27.0-33.4); MEAN CORPUSCULAR HGB CONC 33.2 g/dL (32.0-36.0); MEAN CORPUSCULAR VOLUME 95 fl (80-97); RED BLOOD COUNT 3.26 10^6/uL (4.35-5.55); RED CELL DISTRIBUTION WIDTH 17.1 % (11.5-14.0)
[2020-02-26 04:57] LABS: ALBUMIN 1.9 g/dL (3.5-5.0); ALKALINE PHOSPHATASE 164 U/L (38-126); ANION GAP 11 (5-19); ASPARTATE AMINO TRANSFERASE 150 U/L (17-59); BILIRUBIN,DIRECT 1.9 mg/dL (0.0-0.4); BILIRUBIN,TOTAL 2.4 mg/dL (0.2-1.3); BLOOD UREA NITROGEN 115 mg/dL (7-20); CALCIUM 8.4 mg/dL (8.4-10.2); CARBON DIOXIDE 21 mmol/L (22-30); CHLORIDE 94 mmol/L (98-107); GLUCOSE 178 mg/dL (75-110); PHOSPHORUS 6.5 mg/dL (2.5-4.5); POTASSIUM 5.8 mmol/L (3.6-5.0)
[2020-02-26 04:59] LABS: WHITE BLOOD COUNT 32.1 10^3/uL (4.0-10.5)
[2020-02-26] MEDS ORDERED: SODIUM BICARBONATE 8.4% INJ 50 MEQ/50 ML DISP.SYRIN ONE (05:03)
[2020-02-26] MEDS ORDERED: SODIUM BICARBONATE 8.4% INJ 50 MEQ/50 ML DISP.SYRIN IV ONE (05:03)
[2020-02-26 05:04] LABS: PREALBUMIN 4.1 mg/dL (17.6-36.0)
[2020-02-26 05:06] LABS: BASOPHILS % (MANUAL) 0 % (0-2); EOSINOPHILS % (MANUAL) 0 % (0-6); LYMPHOCYTES % (MANUAL) 3 % (13-45); MONOCYTES % (MANUAL) 3 % (3-13); SEGMENTED NEUTROPHILS % (MAN) 94 % (42-78); TOTAL CELLS COUNTED 100
[2020-02-26 05:08] LABS: ANISOCYTOSIS 1+; POLYCHROMASIA SLIGHT; RBC MORPHOLOGY COMMENT NORMO-CYTIC/CHROMIC; TOXIC GRANULATION 2+
[2020-02-26 05:09] LABS: PLATELET COMMENT DECREASED
[2020-02-26 05:13] LABS: ARTERIAL BLOOD BASE EXCESS -7.9 mmol/L; ARTERIAL BLOOD H2CO3 1.24 mmol/L (1.05-1.35); ARTERIAL BLOOD HCO3 18.5 mmol/L (20-24); ARTERIAL BLOOD O2 SATURATION 98.3 % (94-98); ARTERIAL BLOOD PCO2 41.1 mmHg (35-45); ARTERIAL BLOOD PH 7.27 (7.35-7.45); ARTERIAL BLOOD PO2 134.4 mmHg (80-100); ARTERIAL BLOOD TOTAL CO2 19.8 mmol/L (23-27)
[2020-02-26 05:14] LABS: PLATELET COUNT 60 10^3/uL (150-450)
[2020-02-26 05:20] LABS: ARTERIAL BLOOD FIO2 2L
[2020-02-26] MEDS: METRONIDAZOLE 500 MG/NS RTU 500 MG/100 ML RTUPB IV SCH (05:32)
[2020-02-26] MEDS ORDERED: ALBUMIN HUMAN 12.5 GM/50 ML RTUINJ IV ONE (05:35)
[2020-02-26] MEDS: DEXTROSE 5%-WATER 250 ML with VASOPRESSIN 100 UNIT IV PRN ×2 (09:09)
[2020-02-26] MEDS: DOCUSATE SODIUM 100 MG CAPSULE PO SCH (09:10)
--- NOTE | 2020-02-26 09:52 | RADIOLOGY REPORT (SQ) ---
EXAM DESCRIPTION: CHEST SINGLE VIEW IMAGES COMPLETED DATE/TIME: 02/26/2020 6:12 am REASON FOR STUDY: pneumonia COMPARISON: 02/25/2020. EXAM PARAMETERS: NUMBER OF VIEWS: One view. TECHNIQUE: Single frontal radiographic view of the chest acquired. RADIATION DOSE: NA LIMITATIONS: None. FINDINGS: LUNGS AND PLEURA: Scattered bilateral airspace disease particularly in the lung bases. Le ft pleural effusion. MEDIASTINUM AND HILAR STRUCTURES: No masses. Contour normal. HEART AND VASCULAR STRUCTURES: Cardiomegaly. BONES: No acute findings. HARDWARE: Central line. OTHER: No other significant finding. IMPRESSION: NO SIGNIFICANT CHANGE IN APPEARANCE OF THE CHEST. TECHNICAL DOCUMENTATION: JOB ID: [id number] 2010 [employer]- All Rights Reserved Reading location - IP/workstation name: [email or web address]
[2020-02-26 10:20] LABS: PATH REVIEW PATHOLOGIST REVIEWED
[2020-02-26] MEDS: FONDAPARINUX SODIUM INJ 2.5 MG/0.5 ML DISP.SYRIN SUBCUT SCH (11:12)
[2020-02-26] MEDS ORDERED: MORPHINE SULFATE 10 MG/ML INJ IV ONE (14:30)
[2020-02-26] MEDS ORDERED: ALBUMIN HUMAN 500 ML IV ONE (15:00)
--- NOTE | 2020-02-26 15:37 | PDOC CRITICAL CARE PROG REPORT ---
General Date:: 02/26/20 ICU Day:: 2 Hospital Day:: 2 Resuscitation Status: Do Not Resuscitate Events in the past 12 to 24 Hours:: This 79-year-old male presented to [facility] emergency department on 02/24/2020 with failure to thrive. He was encephalopathic on arrival and consequently was unable to provide significant clinical history. He was found to be hypotensive. He was admitted with a clinical impression of sep tic shock of unknown etiology. His blood pressure failed to improve with IV fluid administration. He was initiated on vasopressors. Of note, initial radiographic evaluation included CT abdomen/pelvis, which revealed the graphic findings concerning for metastatic cancer. The patient's children (one son, 2 daughters) are unaware of his medical history, although they report suspicion of chronic illness and multiple health problems. 02/25: Right femoral central venous catheter was discovered to be in the right femoral artery in the interim. New left IJ central venous catheter was placed. Right femoral line was supposed to be removed; however, it is still in situ. He has had progressively increasing vasopressor requirements. 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 Consequently, all of his children are currently at the bedside. They have been updated. At present, treatment goals are to help his hydration status, nutrition status (as possible), and empirically treat for an infection. The family understands that he is not likely to survive this hospitalization. Their wish is that the patient be "tuned up" enough to be discharged. They are aware that the patient has been cantankerous and has been resistant and even refused treatment. At present, the patient does vacillate (understandable, given his confused mental state) between wanting treatment and not wanting treatment. For now, the children have decided that the patient should be DNR; however, again, they are hoping that he can hemodynamically improve to be allowed to go home. They understand that this goal is interpreted as a dynamic improvement to allow transfer home to . Reason for ICU Addmission:: Septic Shock - Medications: Medications reviewed and adjusted accordingly: Yes Physical Exam Vital Signs: Temp Pulse Resp BP Pulse Ox 99.7 F 84 8 L 138/55 H 100 02/26/20 12:00 02/26/20 12:00 02/26/20 12:00 02/26/20 12:00 02/26/20 12:00 Intake & Output 02/25/20 02/26/20 02/27/20 06:59 06:59 06:59 Intake Total 5018 4310 1534 Output Total 45 255 300 Balance 4973 4055 1234 Weight 119.3 kg 124.7 kg Weight/Height Weight 124.7 kg Height 1.83 m General appearance: PRESENT: no acute distress, well-developed. ABSENT: well-nourished Head exam: PRESENT: atraumatic, normocephalic Eye exam: PRESENT: conjunctiva pink, EOMI, PERRLA. ABSENT: scleral icterus Neck exam: ABSENT: carotid bruit, JVD, lymphadenopathy, thyromegaly Respiratory exam: PRESENT: crackles. ABSENT: rales, rhonchi, wheezes Cardiovascular exam: PRESENT: RRR, tachycardia. ABSENT: diastolic murmur, rubs, systolic murmur Pulses: PRESENT: normal dorsalis pedis pul GI/Abdominal exam: PRESENT: normal bowel sounds, soft. ABSENT: distended, guarding, mass, organolmegaly, rebound, tenderness Extremities exam: PRESENT: full ROM, pedal edema, +2 edema. ABSENT: calf tenderness, clubbing Musculoskeletal exam: PRESENT: normal inspection. ABSENT: deformity Neurological exam: PRESENT: awake, reflexes normal, CN II-XII grossly intact. ABSENT: motor sensory deficit Psychiatric exam: PRESENT: agitated. ABSENT: anxious Skin exam: PRESENT: pallor Tubes/Lines: PRESENT: Central Line - Left IJ, Arterial Catheter - Right femoral Laboratory/Radiographs Laboratory Results: 02/26/20 04:20 02/26/20 04:20 02/25/20 02/26/20 02/26/20 17:57 04:20 04:20 WBC 32.1 H* RBC 3.26 L Hgb 10.2 L Hct 30.9 L MCV 95 MCH 31.4 MCHC 33.2 RDW 17.1 H Plt Count 60 L Seg Neutrophils % Not Reportable Carbonic Acid 0.88 L HCO3/H2CO3 Ratio 17:1 ABG pH 7.34 L ABG pCO2 29.1 L ABG pO2 100.3 H ABG HCO3 15.3 L ABG O2 Saturation 97.3 ABG Base Excess -9.2 FiO2 2L Sodium 125.5 L Potassium 5.8 H Chloride 94 L Carbon Dioxide 21 L Anion Gap 11 BUN 115 H Creatinine 3.66 H Est GFR ( Amer) 20 L Glucose 178 H Calcium 8.4 Phosphorus 6.5 H Magnesium 2.5 H Total Bilirubin 2.4 H AST 150 H Alkaline Phosphatase 164 H Total Protein 5.0 L Albumin 1.9 L Prealbumin 4.1 L 02/26/20 04:35 WBC RBC Hgb Hct MCV MCH MCHC RDW Plt Count Seg Neutrophils % Carbonic Acid 1.24 HCO3/H2CO3 Ratio 14:1 ABG pH 7.27 L ABG pCO2 41.1 ABG pO2 134.4 H ABG HCO3 18.5 L ABG O2 Saturation 98.3 H ABG Base Excess -7.9 FiO2 2L Sodium Potassium Chloride Carbon Dioxide Anion Gap BUN Creatinine Est GFR ( Amer) Glucose Calcium Phosphorus Magnesium Total Bilirubin AST Alkaline Phosphatase Total Protein Albumin Prealbumin 02/24/20 02/24/20 02/24/20 17:50 17:50 22:55 Creatine Kinase 48 L CK-MB (CK-2) 1.83 Troponin I 0.053 0.054 NT-Pro-B Natriuret Pep 02/25/20 02/25/20 02/26/20 04:30 12:15 04:20 Creatine Kinase CK-MB (CK-2) Troponin I 0.059 0.054 NT-Pro-B Natriuret Pep 7740 H 01316 H Impressions: KUB X-Ray 02/24/20 00:00 IMPRESSION: 1. Nonspecific, nonobstructed bowel gas pattern. 2. Lines and tubes as above. Head CT 02/24/20 18:09 IMPRESSION: 1. No acute intracranial hemorrhage or mass effect. Findings compatible with volume loss and chronic microvascular ischemic change are present. If there is clinical concern for acute stroke, consider MRI brain as a more sensitive evaluation. Abdomen/Pelvis CT 02/24/20 18:51 IMPRESSION: Innumerable hypodense masses throughout the liver parenchyma, new from the previous exam dated 12/15/2016, and concerning for metastatic disease. Multilobulated soft tissue mass located in the region of the issac hepatis eventually surrounding the pancreatic head, most likely corresponding to bulky lymphadenopathy as opposed to a pancreatic head mass given the absence of significant atrophy involving the pancreatic body/tail. Superimposed retroperitoneal and mesenteric lymphadenopathy. These findings are also concerning for malignancy, either lymphoma or metastatic disease. Given the concomitant findings within the liver, the latter is favored. Small bilateral pleural effusions with associated bibasilar consolidation, presumably atelectasis although pneumonia is also a possibility. Postsurgical changes of right hemicolectomy and sigmoid colectomy with left lower quadrant ostomy. An associated moderately sized parastomal hernia. No evidence of obstruction. Main pulmonary arterial enlargement. Correlate for pulmonary hypertension. Small amount of perihepatic ascites. TECHNICAL DOCUMENTATION: Quality ID # [id number]: Final reports with documentation of one or more dose reduction techniques (e.g., Automated exposure control, adjustment of the mA and/or kV according to patient size, use of iterative reconstruction technique) copyright 2011 [employer]- All Rights Reserved Chest X-Ray 02/26/20 04:00 IMPRESSION: NO SIGNIFICANT CHANGE IN APPEARANCE OF THE CHEST. All labs, radiographs, diagnostic studies and EKGs were personally reviewed: Yes In addition, reports of radiographic and diagnostic studies were read: Yes Assessment and Plan - Diagnosis (1) Septic shock Is this a current diagnosis for this admission?: Yes Plan: Approaching maximal vasopressor support. Check SVO 2. Transduce CVP. (2) Pneumonia Is this a current diagnosis for this admission?: Yes Plan: Continue empiric Zosyn/Flagyl. (3) Stage II decubitus ulcer Is this a current diagnosis for this admission?: Yes (4) Metastatic cancer to liver Is this a current diagnosis for this admission?: Yes (5) Acute encephalopathy Is this a current diagnosis for this admission?: Yes (6) Acute kidney injury Is this a current diagnosis for this admission?: Yes (7) Diabetes mellitus Qualifiers: Diabetes mellitus type: type 2 Diabetes mellitus exterminator helper termite insulin use: without [place] [facility] use Diabetes mellitus complication status: with other specified complication Qualified Code(s): E11.69 - Type 2 diabetes mellitus with other specified complication Is this a current diagnosis for this admission?: Yes (8) Hyperkalemia Is this a current diagnosis for this admission?: Yes Plan Summary: The family (3 children: 1 son, 2 daughters) have decide that the patient should be made comfort care. They wish for him to suffer no longer and honor his wishes to not continue to receive unwanted treatment. Critical Time Critical Time (minutes): 90 Level of Care: ICU -: 1. The care of a critical patient is a dynamic process. This note is a telephone claims representative synopsis but static in nature. The timeframe for treatments given in order is not necessarily the actual time these treatments may have been done. 2. This patient requires critical care secondary to ongoing requirements for th erapy not offered or safe outside the critical care environment. Transfer to a lower level of care will result in altered life or limb morbidity and mortality. 3. Multidisciplinary rounds completed. 4. ABCDE bundle addressed.
[2020-02-26] MEDS ORDERED: MIDAZOLAM 2 MG/2 ML INJ IV PRN (15:42)
[2020-02-26] MEDS: MORPHINE SULFATE 10 MG/ML INJ IV PRN ×2 (15:58→17:57)
[2020-02-26 16:17] VITALS: BP 121/61
--- NOTE | 2020-02-26 22:57 | Death Summary ---
Summary Date : 02/26/20 Time of :: 22:24 Autopsy: No Resuscitation Status: Comfort Measures Only Primary Care Provider: Dr. Lopez - Final Diagnosis (1) Acute encephalopathy Is this a current diagnosis for this admission?: Yes (2) Acute kidney injury Is this a current diagnosis for this admission?: Yes (3) Diabetes mellitus Is this a current diagnosis for this admission?: Yes (4) Sepsis associated hypotension Is this a current diagnosis for this admission?: Yes (5) Abdominal wall abscess Is this a current diagnosis for this admission?: Yes (6) Bedridden Is this a current diagnosis for this admission?: No (7) Chronic back pain Is this a current diagnosis for this admission?: Yes (8) Chronic narcotic use Is this a current diagnosis for this admission?: Yes Hospital Course:: This 79-year-old male presented to [facility] emergency department on 02/24/2020 with failure to thrive. He was encephalopathic on arrival and consequently was unable to provide significant clinical history. He was found to be hypotensive. He was admitted with a clinical impression of septic shock of unknown etiology. His blood pressure failed to improve with IV fluid administration. He was initiated on vasopressors. Of note, initial radi ographic evaluation included CT abdomen/pelvis, which revealed the graphic findings concerning for metastatic cancer. The patients children (one son, 2 daughters) are unaware of his medical history, although they report suspicion of chronic illness and multiple health problems. Patient developed worsening septic shocks that required 3 maximum dose of vasopressors. Updated families and code status was changed to DNR and eventually to comfort measure today. Family members at the bedside when patient at 2223. Animal Herder notified, spoke to Yuliya Mckinney around 2229 and case was denied.
== END 2020-02-26 22:24 | DRG 871 ==
LOC: ER 16:41 → EH 21:51 → ICU 22:21
PROVIDERS: ADMIT Internal Medicine Critical Care Medicine; ATTEND Internal Medicine Critical Care Medicine
PROC: 04HK33Z Insertion of Infusion Device into Right Femoral Artery, Percutaneous Approach (ICD-10-PCS; 2020-02-24)
PROC: 02HV33Z Insertion of Infusion Device into Superior Vena Cava, Percutaneous Approach (ICD-10-PCS; principal; 2020-02-25)
DX: A41.9 Sepsis, unspecified organism (principal); G93.41 Metabolic encephalopathy; R65.21 Severe sepsis with septic shock; J18.9 Pneumonia, unspecified organism; N17.9 Acute kidney failure, unspecified; C78.7 Secondary malignant neoplasm of liver and intrahepatic bile duct; Z51.5 Encounter for palliative care; I50.9 Heart failure, unspecified; I11.0 Hypertensive heart disease with heart failure; E87.5 Hyperkalemia; J44.9 Chronic obstructive pulmonary disease, unspecified; E11.9 Type 2 diabetes mellitus without complications; I48.91 Unspecified atrial fibrillation; K21.9 Gastro-esophageal reflux disease without esophagitis; F32.9 Major depressive disorder, single episode, unspecified; M19.90 Unspecified osteoarthritis, unspecified site; Z79.4 Long term (current) use of insulin; Z79.891 Long term (current) use of opiate analgesic; Z74.01 Bed confinement status; L89.152 Pressure ulcer of sacral region, stage 2; Z66 Do not resuscitate; Z90.49 Acquired absence of other specified parts of digestive tract; Z93.3 Colostomy status; R62.7 Adult failure to thrive; Z79.899 Other long term (current) drug therapy; Z78.1 Physical restraint status
CPT/HCPCS: 36415; 36600; 70450; 71045; 74018; 74176; 80053; 81001; 82550; 82553; 82803; 82962; 83605; 83735; 83880; 84100; 84134; 84484; 85025; 85610; 85730; 87040; 87070; 93005; 93010; 96361; 96365; 96366; 96367; 96375; 99291; C9113; J0610; J0696; J1630; J1815; J2060; J2250; J2270; J2370; J2543; J3010; J3370; J3490; J7030; J7060; J7120; P9047